=== PATIENT | male | born 1945 | race Caucasian/White ===

== ENCOUNTER 2016-05-11 00:42 | Inpatient (IN) | payer OTHER, MEDICARE ==
[~2016-05-11] VITALS: Ht 172.7 cm; Wt 72.6 kg
[~2016-05-11 00:42] MED LIST: ADVAIR DISKUS 21 DSK INH; ALBUTEROL2.5 MG/3 M INH; ARTHROTEC 75 MG1 TAB PO; ATIVAN 0.5MG T0.5 MG PO; ATIVAN0.5 MG PO; ATORVASTATIN CA10 MG PO; AUGMENTIN 875875 MG PO; AZITHROMYCIN250 MG PO; CYTOTEC200 MC1 PO; DALIRESP500 MC1 PO; DALIRESP500 MCG PO; DICLOFENAC SODI75 M2 PO; GLIPIZIDE5 M2 PO; HYDRODIURIL 112.5 M1 PO; HYDROXYZINE HCL10 M1 PO; HYDROXYZINE HCL50 MG PO; LOPRESSOR 12.12.5 MG PO; MAGNESIUM OXID400 MG PO; METOPROLOL TART25 M1 PO; NOVOLOG100 U/ML SC; PREDNISONE 10MG10 M1 PO; PREDNISONE 20MG20 MG PO; PREDNISONE 5 MG5 MG PO; PREDNISONE10 M2 PO; PREDNISONE10 MG PO; PROAIR HFA8.5 GM INH; PROCHLORPERAZIN10 M1 PO; SERTRALINE HYD100 MG PO; SPIRIVA18 MCG INH; SYMBICORT 16010.2 GM INH; THEOPHYLLINE300 M2 PO; VENLAFAXINE HC150 MG PO; XOPENEX 3 ML3 M1 NEB; XOPENEX HFA45 MCG INH; ZOLOFT 100 MG100 MG PO; [UNRECOGNIZED DRUG - OTHER]
--- NOTE | 2016-05-11 00:57 | NUR ---
PER PT INCREASING SOB OVER LAST FEW DAYS, PER PT HX OF EMPHYSEMA.
--- NOTE | 2016-05-11 01:00 | ED DYSPNEA/ASTHMA COMPLAINT ---
History of Present Illness General Chief Complaint: Dyspnea (COPD, CHF, Other) Stated Complaint: SOB Source: patient, old records, EMS Exam Limitations: no limitations Vital Signs & Intake/Output Vital Signs & Intake/Output Vital Signs Date Time Temp Pulse Resp B/P Pulse O2 O2 Flow FiO2 Ox Delivery Rate 05/11 0306 112 99 05/11 0228 104 24 110/68 99 BIPAP 05/11 0130 115 99 05/11 0104 214/108 05/11 0055 97.8 122 22 96 Nasal 6.0L Cannula Allergies Coded Allergies: NO KNOWN ALLERGIES (11/03/14) Reconcile Medications Albuterol Sulfate (Proair Hfa) 0.09 MG/Actuation ULI 2 PUFF INH Q4-6 COPD ( Reported) Albuterol Sulfate (Proventil) 2.5 MG/3 ML NEB 3 ML INH Q4P PRN SHORTNESS OF BREATH (Reported) Budesonide/Formoterol Fumara (Symbicort 160-4.5 Mcg Inhaler) 160 MCG/4.5 MCG PUF 2 PUF INH BID COPD (Reported) Budesonide/Formoterol Fumarate (Symbicort 160-4.5 Mcg Inhaler) 160 MCG-4.5 MCG/ ACTUATION HFA.AER.AD 2 PUF INH BID BREATHING PROBLEMS (Reported) Diclofenac Sodium 75 MG TABLET.DR 1 TAB PO BID pain (Reported) Glipizide 5 MG TABLET 1 TAB PO AT BEDTIME dm (Reported) Hydrochlorothiazide 12.5 MG CAPSULE 1 CAP PO DAILY HEART HEALTH (Reported) Hydroxyzine HCl 10 MG TABLET 10 MG PO TID anxiety Magnesium Oxide 400 MG TAB 1 TAB PO BID REPLETE ELECTROLYTES TAKE FOR NEXT 4 DAYS THEN STOP Metoprolol Tartrate 25 MG TABLET 0.25 TAB PO BID svt (Reported) Misoprostol (Cytotec) 200 MCG TABLET 1 TAB PO BID stomach (Reported) Prednisone 10 MG TABLET 0 PO SEE ADMIN CRITERIA COPD start from take 5 pill x 1 day take 4 pills x 2 days take 3 pills x 2 days take 2 pills x 2 days take 1 pill x 1 day take half a pill x 1 day then stop Roflumilast (Daliresp) 500 MCG TABLET 500 MCG PO DAILY COPD Theophylline 300 MG T12 0.5 TAB PO DAILY BREATHING (Reported) Tiotropium [place] (Spiriva) 18 MCG CAP.W.DEV 1 CAP INH DAILY BREATHING PROBLEMS (Reported) Venlafaxine HCl (Venlafaxine HCl ER) 150 MG CAP.ER.24H 1 CAP PO DAILY depression (Reported) Triage Note: PER PT INCREASING SOB OVER LAST FEW DAYS, PER PT HX OF EMPHYSEMA. Triage Nurses Notes Reviewed? yes Onset: Just prior to arrival Duration: hour(s):, constant, continues in ED, getting worse Timing: recent history Severity: severe Activities at Onset: none Prior Episodes/Possible Cause: chronic episodes Modifying Factors: Improves With: rest. Worsens With: movement. Associated Symptoms: anxiety, cough, wheezing, weakness HPI: 2 hours prior to admission patient complains of nonproductive cough shortness of breath anxiety. There is no fever chills nausea vomiting diarrhea abdominal pain chest pain headache dysuria rash bleeding. His son reports he has been increasing his oxygen over the last 2 days to 5L. Past History Travel History Traveled to [place] past 21 day No Medical History Any Pertinent Medical History? 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 No Review of Systems Review of Systems Constitutional: Reports: see HPI, weakness. EENTM: Reports: no symptoms. Respiratory: Reports: see HPI, cough, short of breath. Cardiovascular: Reports: no symptoms. GI: Reports: no symptoms. Genitourinary: Reports: no symptoms. Musculoskeletal: Reports: no symptoms. Skin: Reports: no symptoms. Neurological/Psychological: Reports: no symptoms. Hematologic/Endocrine: Reports: no symptoms. Immunologic/Allergic: Reports: no symptoms. All Other Systems: Reviewed and Negative Physical Exam Physical Exam General Appearance: well developed/nourished, alert, awake, anxious, thin Head: atraumatic, normal appearance Eyes: Bilateral: normal appearance, PERRL, EOMI. Ears, Nose, Throat: normal pharynx, normal ENT inspection Neck: normal inspection, supple, full range of motion, no midline tenderness Respiratory: chest non-tender, decreased breath sounds, accessory muscle use, rhonchi, wheezing, respiratory distress Cardiovascular: regular rate/rhythm, normal peripheral pulses, tachycardia, norml femoral pulses equa Peripheral Pulses: 4+ carotid (R), 4+ carotid (L) Gastrointestinal: normal bowel sounds, soft, non-tender, no organomegaly Extremities: normal inspection, normal capillary refill, normal range of motion, no edema Neurologic/Psych: no motor/sensory deficits, awake, alert, oriented x 3, normal mood/affect, zoning engineer II-XII nml as tested Skin: intact, normal color, warm/dry Lymphatic: no anterior cervical manasa Core Measures ACS in differential dx? No Severe Sepsis Present: No Septic Shock Present: No Progress Differential Diagnosis: asthma, bronchitis, CHF, COPD, pneumonia Plan of Care: Orders Procedure Date/time Status Consistent Carbohydrate 3 05/11 B Active ARTERIAL BLOOD GAS (GEN) 05/11 0900 Active CBC WITHOUT DIFFERENTIAL 05/11 0600 Active BASIC ELECTROLYTES PLUS BUN&CR 05/11 0600 Active RAPID VIRAL INFLUENZA A 05/11 0410 Active Pathway - chart 05/11 0406 Active Code Status 05/11 0406 Active Patient Data 05/11 0313 Active OXYGEN SETUP (GEN) 05/11 0211 Active Saline Lock 05/11 0211 Active Admit to inpatient 05/11 0211 Active Vital Signs 05/11 0211 Active Activity/Ambulation 05/11 0211 Active Code Status 05/11 0211 Complete Intake & Output 05/11 0139 Active BIPAP 05/11 0135 Complete BLOOD CULTURE 05/11 0125 Active ARTERIAL BLOOD GAS (GEN) 05/11 0049 Complete BLOOD CULTURE 05/11 0049 Active TROPONIN LEVEL 05/11 0049 Complete MAGNESIUM 05/11 0049 Complete COMPREHENSIVE METABOLIC PANEL 05/11 0049 Complete CBC WITHOUT DIFFERENTIAL 05/11 0049 Complete EKG 05/11 0049 Active TRC EVALUATION (GEN) 05/11 UNK Active PULSE OXIMETRY (GEN) 05/11 UNK Active PEAK FLOW MEASUREMENT (GEN) 05/11 UNK Active OXYGEN SETUP (GEN) 05/11 UNK Active House Staff 05/11 UNK Active VTE Mechanical Prophylaxis 05/11 UNK Active Vital Signs 05/11 UNK Active Intake & Output 05/11 UNK Active FingerStick- Glucose 05/11 UNK Active Current Medications Sig/Renee Start time Last Medication Dose Stop Time Status Admin Azithromycin 250 MG DAILY 05/11 1000 UNVr (Zithromax) Budesonide/ 2 PUF BID 05/11 1000 UNVr Formoterol Fumarate (Symbicort) Hydrochlorothiazide 12.5 MG DAILY 05/11 1000 UNVr (Hydrodiuril) Tiotropium [place] 1 PUF DAILY 05/11 1000 UNVr (Spiriva) Heparin Sodium 5,000 UNIT Q8 05/11 0600 UNVr (Porcine) Methylprednisolone 40 MG Q6 05/11 06 UNVr (Solumedrol) 05/13 2359 Acetaminophen 500 MG Q6P PRN 05/11 041 UNVr (Tylenol) Oxycodone/ 2 TAB Q8P PRN 05/11 0415 UNVr Acetaminophen (Percocet) Ramelteon 8 MG ONCE ONE 05/11 414 UNVr (Rozerem) 05/11 041 Guaifenesin 10 ML Q4P PRN 05/11 0400 UNVr (Robitussin) Laboratory Tests 05/11/16 011: Anion Gap 4 L, Estimated GFR > 60, BUN/Creatinine Ratio 30.0 H, Glucose 120 H , Calcium 9.4, Magnesium 1.7, Total Bilirubin 0.3, AST 34, ALT 42, Alkaline Phosphatase 207 H, Troponin I 0.02, Total Protein 6.5, Albumin 3.9, Globulin 2.6, Albumin/Globulin Ratio 1.5, CBC w Diff NO MAN DIFF REQ, RBC 4.51 L, MCV 89.6, MCH 29.1, RDW 13.6, MPV 9.0, Gran % 57.8, Lymphocytes % 32.2, Monocytes % 7.7, Eosinophils % 1.9, Basophils % 0.4, Absolute Granulocytes 5.2, Absolute Lymphocytes 2.9, Absolute Monocytes 0.7 H, Absolute Eosinophils 0.2, Absolute Basophils 0, PUBS MCHC 32.5 L 05/11/16 0055: pH 7.30 *L, pCO2 60 *H, pO2 162 H, HCO3 29 H, ABG O2 Sat (Measured) 98.0, P-50 (Temp Corrected) Y, Carboxyhemoglobin 0.3 L, O2 Concentration % 10 LPM, Temperature 97.8, O2 Delivery Method A/M, Phlebotomy Draw Site LEFT RADIAL Microbiology 05/11 409 NASOPHARYN: Influenza Virus A & B Rapid Smear - ORD 05/11 126 BLOOD: Blood Culture - RECD 05/11 116 BLOOD: Blood Culture - RECD Diagnostic Imaging: Viewed by Me: Radiology Read. Discussed w/RAD: Radiology Read. CXR Impression: no acute abnormality Initial ED EKG: normal axis, normal intervals, normal p-waves, normal QRS complex, normal sinus rhythm, nonspecific ST T wave chg Prior EKG: unchanged Rhythm Strip: sinus tachycardia Departure Departure Disposition: STILL A PATIENT Condition: Stable Clinical Impression Primary Impression: COPD with exacerbation Secondary Impressions: Acute respiratory acidosis Referrals: SPENCER ZHOU,EMANUEL Menezes (PCP/Family) Departure Forms: Customer Survey General Discharge Information Admission Note Spoke With: SHAHBAZ MERCEDES MD Documentation of Exam: Documentation of any treatments & extenuating circumstances including Concerns Regarding Discharge (functional status, medication knowledge or non-compliance, living conditions, etc.) that warrant an admission rather than observation: Pulmonary evaluation IV steroids serial beta agonist nebs supplemental oxygen physical therapy medication adjustment continuing care discharge planning Critical Care Note Critical Care Note Critical Care Time: 30-74 min (40) Comments: BiPAP effective in decreasing work of breathing
--- NOTE | 2016-05-11 01:04 | NUR ---
PT ALERT SITTING STRAIGHT UP IN BED PT REPORTS FEELING TOOO HOT REMOVED SHIRT, REFUSING ROGE, REQUESTS FAN LABORED BREATHING AT REST, SCATTERED RHONCHI NOTED AND DIMINSHED BS BILAT BASES.
--- NOTE | 2016-05-11 01:21 | NUR ---
LABS AND 1SET OF BLOOD CULTURES DRAWN SST LAV AVILES PINK BLUE
--- NOTE | 2016-05-11 01:28 | NUR ---
RESP AT BEDSIDE PLACING PT ON BIPAP
--- NOTE | 2016-05-11 01:29 | RADIOLOGY REPORT ---
EXAMINATION: XR PORTABLE CHEST CLINICAL INFORMATION: History of COPD. Shortness of breath. Question pneumonia. COMPARISON: Chest radiograph 11/10/2015. TECHNIQUE: Portable AP view of the chest was obtained. FINDINGS: There is bilateral lung hyperexpansion with flattening of the diaphragmatic contours. Lungs are well-expanded. There is central hilar vascular engorgement. No focal consolidative disease or effusion. No pneumothorax. The cardiac silhouette and upper mediastinal contours are normal. No acute osseous finding. Chronic changes of an anterior cervical discectomy and fusion within the lower cervical spine is noted. IMPRESSION: Findings consistent with chronic obstructive pulmonary disease. No overt consolidative disease or effusion.
--- NOTE | 2016-05-11 01:29 | NUR ---
PT VERY ANXIOUS. OK WITH DR WATSON TO GIVE 0.5 MG ATIVAN.
[2016-05-11 01:32] LABS: ABSOLUTE BASOPHIL COUNT 0 /CUMM (0.0-0.2); ABSOLUTE EOSINOPHIL COUNT 0.2 /CUMM (0.0-0.7); ABSOLUTE GRANULOCYTE CT 5.2 /CUMM (1.4-6.5); ABSOLUTE LYMPH COUNT 2.9 /CUMM (1.2-3.4); ABSOLUTE MONOCYTE COUNT 0.7 /CUMM (0.10-0.60); BASOPHIL % 0.4 % (0.0-2.0); EOSINOPHIL % 1.9 % (0-5); GRANULOCYTE % 57.8 % (42.2-75.2); HEMATOCRIT 40.4 % (42-52); MEAN CORPUSCULAR HGB 29.1 PG (27.0-31.0); MEAN CORPUSCULAR HGB CONC 32.5 G/DL (33.0-37.0); MEAN CORPUSCULAR VOLUME 89.6 FL (80.0-94.0); PLATELET COUNT 198 /CUMM (130-400); RBC DISTRIBUTION WIDTH 13.6 % (11.5-14.5); RED BLOOD CELL CT 4.51 /CUMM (4.70-6.10); WHITE BLOOD CELL COUNT 8.9 /CUMM (4.8-10.8)
--- NOTE | 2016-05-11 02:28 | NUR ---
LESS ANXIOUS AFTER ATIVAN, STABLE
--- NOTE | 2016-05-11 02:51 | NUR ---
PT MUCH LESS ANXIOUS BUT IS REQUESTING A SLEEPING PILL. AND WHEN PT WAS TOLD PER MD HE SHOULD NOT HAVE A SLEEPING PILL AT THIS TIME PT BECAME ANXIOUS INSTANTLY.
--- NOTE | 2016-05-11 02:59 | NUR ---
PT REQUESTING TO BE TAKEN OFF BIPAP, OK PER DR WATSON. PT PLACED ON BASELINE NC 4L/MIN. O2 SAT 98-99%
[2016-05-11] MEDS ORDERED: SYMBICORT 16010.2 GM INH (03:13)
[2016-05-11] MEDS ORDERED: HYDROCHLOROTH12.5 M3 PO (03:13)
--- NOTE | 2016-05-11 03:30 | History & Physical ---
TICO ZHOU,[facility] – [place] 05/11/16 0329: General Information and HPI MD Statement: I have seen and personally examined EMRE CORREA SR and documented this H&P. The patient is a 71 year old M who presented with a patient stated chief complaint of shortness of breath. Source of Information: patient, old records Exam Limitations: no limitations History of Present Illness: Mr. 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 Patient denies increased cough or sputum production or changes in sputum color. He denies sick contacts, fever, chills or URI symptoms. He tried nebulizers at home with no significant relief. Per patient's son, he has been requiring increased oxygen at home for the past two days leading up to current presentation, but patient denies it. He follows with clinic mgr Dr. Kunz in [place] but has not been compliant with visits. Of note he has not been taking the roflumilast as his insurance does not cover the medication. Allergies/Medications Allergies: Coded Allergies: NO KNOWN ALLERGIES (11/03/14) Past History Travel History Traveled to [place] past 21 day No Medical History Neurological: NONE EENT: wears glasses Cardiovascular: hypertension, hyperlipidemia, sinus tachycardia Respiratory: asthma, COPD (end-stage) Gastrointestinal: NONE Hepatic: NONE Renal: NONE Musculoskeletal: NONE Psychiatric: depression, panic attacks Endocrine: diabetes Blood Disorders: NONE Cancer(s): NONE FURNITURE REMOVALIST'S ASSISTANT/Reproductive: NONE History of MRSA: No History of VRE: No History of CDIFF: No Surgical History Surgical History: anterior cervical discectomy Past Family/Social History Family History Relations & Conditions if any MOTHER Lung disease BROTHER FH: stroke Psychosocial History Where do you live? Home Who Do You Live With? self (son lives upstairs ) Services at Home: Oxygen Primary Language: Greenlandic Smoking Status: Former Smoker (90 Pack-Yrs, Quit 15 Yrs Ago) ETOH Use: denies use Illicit Drug Use: denies illicit drug use Functional Ability ADLs Independent: dressing, eating, toileting, bathing. Ambulation: cane IADLs Independent: finances, telephone, medication admin. Needs Assist: shopping, housework, food prep, transportation. Employment History Employment Retired Review of Systems Review of Systems Constitutional: Denies: chills, fever. EENTM: Reports: no symptoms. Cardiovascular: Denies: chest pain. Respiratory: Reports: cough, short of breath, sputum production. GI: Denies: abdominal pain. Genitourinary: Reports: no symptoms. Musculoskeletal: Reports: no symptoms. Skin: Reports: no symptoms. Neurological/Psychological: Reports: no symptoms. Hematologic/Endocrine: Reports: no symptoms. Immunologic/Allergic: Reports: no symptoms. All Other Systems: Reviewed and Negative Exam & Diagnostic Data Last 24 Hrs of Vital Signs/I&O Vital Signs Date Time Temp Pulse Resp B/P Pulse O2 O2 Flow FiO2 Ox Delivery Rate 05/11 0529 98 Nasal 4.0L Cannula 05/11 0515 98.3 100 20 118/60 98 Nasal 4.0L Cannula 05/11 0507 98 Nasal 4.0L Cannula 05/11 0412 96.9 98 18 102/60 98 Nasal 4.0L Cannula 05/11 0306 112 99 05/11 0228 104 24 110/68 99 BIPAP 05/11 0130 115 99 05/11 0104 214/108 05/11 0055 97.8 122 22 96 Nasal 6.0L Cannula Intake & Output 05/11 0800 05/11 0000 05/10 1600 Intake Total Output Total 100 Balance -100 Output, Urine 100 Patient 72.575 kg Weight Physical Exam General Appearance Alert, Oriented X3, No Acute Distress Skin No Rashes HEENT Atraumatic, Mucous Membr. moist/pink Neck Supple Cardiovascular Regular Rate, Normal S1, Normal S2 Lungs Diminished Breath Sounds, Mild Respiratory Distress with Accessory Muscle Use Abdomen Soft, No Tenderness, Positive Bowel Sounds Neurological No Focal Deficits Noted Extremities No Clubbing, No Cyanosis, No Edema Last 24 Hrs of Labs/Joel: Laboratory Tests 05/11/16 0117: Anion Gap 4 L, Estimated GFR > 60, BUN/Creatinine Ratio 30.0 H, Glucose 120 H , Calcium 9.4, Magnesium 1.7, Total Bilirubin 0.3, AST 34, ALT 42, Alkaline Phosphatase 207 H, Troponin I 0.02, Total Protein 6.5, Albumin 3.9, Globulin 2.6, Albumin/Globulin Ratio 1.5, CBC w Diff NO MAN DIFF REQ, RBC 4.51 L, MCV 89.6, MCH 29.1, RDW 13.6, MPV 9.0, Gran % 57.8, Lymphocytes % 32.2, Monocytes % 7.7, Eosinophils % 1.9, Basophils % 0.4, Absolute Granulocytes 5.2, Absolute Lymphocytes 2.9, Absolute Monocytes 0.7 H, Absolute Eosinophils 0.2, Absolute Basophils 0, PUBS MCHC 32.5 L 05/11/16 0055: pH 7.30 *L, pCO2 60 *H, pO2 162 H, HCO3 29 H, ABG O2 Sat (Measured) 98.0, P-50 (Temp Corrected) Y, Carboxyhemoglobin 0.3 L, O2 Concentration % 10 LPM, Temperature 97.8, O2 Delivery Method A/M, Phlebotomy Draw Site LEFT RADIAL Diagnostic Data EKG Results Sinus tachycardia HR 114 Multiple premature atrial complexes QTc 452 CXR Results Findings consistent with chronic obstructive pulmonary disease. No overt consolidative disease or effusion. 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 #COPD exacerbation: Symptoms improved significantly with BiPAP. Currently patient is back at baseline oxygen requirement of 4 L, improved from 6 L on initial presentation. Exam remarkable for markedly diminished breath sounds and accessory muscle use. ABG 7.30/60/120/29. CXR with no evidence of pneumonia. S/p 125 mg IV Solumedrol in the ED. * Continue Solumedrol IV 40 mg Q8H. * Consult clinic mgr Dr. Hernandez in the AM who patient has seen previously as inpatient. * TRC/nebs. * Continue home inhalers Symbicort 2 puffs BID and Spiriva 1 puff BID. * Patient is unsure if he is taking theophylline. Confirm medications and resume if he is taking the medication. * Start Mucinex 600 mg PO BID. * Start azithromycin 250 mg PO daily. * Repeat ABG only if patient deteriorates or develops altered mental status. * Provide supplemental oxygen as tolerated to keep SpO2 > 92%. * Confirm home medications in the AM and resume. #T2DM: Patient is no longer taking glipizide. * Accu-checks and medium dose sliding scale Novolog TIDAC. #HTN: Patient confirms taking HCTZ but it is unclear if he is still taking metoprolol. * Continue HCTZ 12.5 mg PO daily. * Resume metoprolol after confirming medications if patient is still on medication. Diet: Consistent Carbohydrate 3 DVT PPx: Lovenox and ALPs CODE: FULL As Ranked By This Provider Problem List: 1. COPD exacerbation 2. Acute respiratory failure with hypercapnia 3. T2DM (type 2 diabetes mellitus) 4. Hypertension 5. Sinus tachycardia Core Measures/Miscellaneous Acute Coronary Syndrome ACS Diagnosis: No Cerebrovascular Accident CVA/TIA Diagnosis: No Congestive Heart Failure CHF Diagnosis: No Venous Thromboembolism VTE Risk Factors: Age > 40, CHF or Resp failure [facility] prophylaxis d/t: No contraindications No VTE Pharm Prophylaxis d/t: No contraindications VTE Diagnosis: No VTE Type: NONE VTE Confirmed by (Test): NONE Severe Sepsis Severe Sepsis Present: No Septic Shock Septic Shock Present: No Miscellaneous Documentation Attending Case Discussed With: CAREY ZHOU,JARAD Prabhakar Primary Care Physician: EMANUEL KUNZ MD, I. Patient sees these Specialists Community Service Director Emanuel Kunz MD Level of Patient Care: Telemetry DARENJENELLEJennifer 05/11/16 0603: General Information and HPI Allergies/Medications Home Med list Albuterol Sulfate (Proair Hfa) 0.09 MG/Actuation ULI 2 PUFF INH Q4-6 COPD ( Reported) Albuterol Sulfate (Proventil) 2.5 MG/3 ML NEB 3 ML INH Q4P PRN SHORTNESS OF BREATH (Reported) Budesonide/Formoterol Fumara (Symbicort 160-4.5 Mcg Inhaler) 160 MCG/4.5 MCG PUF 2 PUF INH BID COPD (Reported) Budesonide/Formoterol Fumarate (Symbicort 160-4.5 Mcg Inhaler) 160 MCG-4.5 MCG/ ACTUATION HFA.AER.AD 2 PUF INH BID BREATHING PROBLEMS (Reported) Diclofenac Sodium 75 MG TABLET.DR 1 TAB PO BID pain (Reported) Glipizide 5 MG TABLET 1 TAB PO AT BEDTIME dm (Reported) Hydrochlorothiazide 12.5 MG CAPSULE 1 CAP PO DAILY HEART HEALTH (Reported) Hydroxyzine HCl 10 MG TABLET 10 MG PO TID anxiety Magnesium Oxide 400 MG TAB 1 TAB PO BID REPLETE ELECTROLYTES TAKE FOR NEXT 4 DAYS THEN STOP Metoprolol Tartrate 25 MG TABLET 0.25 TAB PO BID svt (Reported) Misoprostol (Cytotec) 200 MCG TABLET 1 TAB PO BID stomach (Reported) Theophylline 300 MG T12 0.5 TAB PO DAILY BREATHING (Reported) Tiotropium [place] (Spiriva) 18 MCG CAP.W.DEV 1 CAP INH DAILY BREATHING PROBLEMS (Reported) Venlafaxine HCl (Venlafaxine HCl ER) 150 MG CAP.ER.24H 1 CAP PO DAILY depression (Reported) Attending MD Review Statement Attending Statement Attending MD Statement: examined this patient, discuss w/resident/PA/PUBLIC SPEAKING TEACHER, agreed w/resident/PA/PUBLIC SPEAKING TEACHER, discussed with family, reviewed EMR data (avail), reviewed images, amended to note Attending Assessment/Plan: CC: Acute worsening of shortness of breath PMH: COPD on 4 L NC, HTN, HLD, DM, lung nodule Patient came to ER with acute worsening of shortness of breath started a few hours before arrival. Patient tried his home albuterol without improvement. According to his son patient was using increased oxygen at home since last 2 days but patient denies it. Patient also denies increased cough, sputum production, fever, chills, chest pain, abdominal pain or any other symptoms. Vitals: Afebrile, pulse 122 , tachypneic at 24, blood pressure 2014/108, requiring 6 L to saturate at 94% later on started on BiPAP., Patient was on BiPAP for 2-3 hours in ER after which his vitals improved. On exam: A O 3, cooperative, respiratory distress, accessory muscles in use, neck supple, no JVD , no lymphadenopathy, mucosa moist, no focal neurological deficit, no dependent edema, no obvious skin rashes or inflammation CVS: S1-S2, RRR. RS: Markedly decreased breath sounds. Bilaterally. Abdomen: Soft, NT, ND, bowel sounds present. Peripheral pulses perfusion normal. Labs: CVC, BMP, LFT unremarkable, alkaline phosphatase 207, troponin 0.02. AB.30/60/162/29 on 10 L. CXR: No obvious pneumonia A and P #1 acute on chronic respiratory failure with hypercapnia: Secondary to COPD exacerbation, patient improved markedly with BiPAP support, now requiring 4 L nasal cannula which is at baseline, still accessory muscles in use, diminished air entry bilaterally. Continue IV methylprednisolone 40 mg every 8 hours, scheduled and when necessary albuterol and ipratropium inhalation, Mucinex 600 mg by mouth twice a day, pulmonary consult in a.m., name not to repeat ABG unless patient is worsened or altered mental status. He is compliant with Symbicort, Spiriva at home but not sure if he is taking theophylline. Insurance does not cover for Roflumilast. Patient is not very compliant with his doctor's visits, as he cannot go to [place] every time. Patient request to see Dr. Hernandez as he has seen him in the past visit, and wants to follow up with him outpatient as well. #2 past history of diabetes: Patient states that he stopped taking glipizide #3 hypertension: Patient confirms taking HCTZ, but unsure if he is taking metoprolol or not. #4 patient's ex helps him in medications, need to reconfirm his medications either from [facility] pharmacy or from his ex-, resume medications accordingly in a.m. #5 DVT prophylaxis with Lovenox, adequate pain control. #6 we had some discussion about CODE STATUS, patient is full code. I explained him that it will be difficult for weaning off ventilator with severe COPD, he is thinking to make living will. Son is healthcare proxy. BRANDYN CLEMENT 05/11/16 0620: Resident Review Statement Resident Statement: examined this patient, discussed with director internal control, agreed with director internal control, reviewed EMR data (avail), reviewed images, amended to note Other Findings: This is 69-year-old gentleman with past medical history of severe COPD on 4-6 L oxygen nasal cannula, hypertension, hyperlipidemia, diabetes mellitus previous lung nodule seen in the CAT scan, followed regularly by his clinic mgr Dr. kunz in [place]. Patient presented to the emergency department she complain off difficulty breathing that is associated with nonproductive cough and anxiety , cognitive the patient started 2 hour prior to presentation. Patient denies any fever, chills, chest pain, nausea, vomiting, diarrhea, abdominal pain, headache, sick contact. Physical examination, imaging and lab as above. Assessment: -Acute on chronic hypercarbic respiratory failure: Most likely due to underlying COPD exacerbation, patient will need IV steroids, nebulizing treatment and nocturnal BiPAP. Patient also need to cover with a Z-Jeremías, despite that AER NO obvious upper or lower respiratory tract. Infection influenza need to be ruled out. Plan: -Admit patient to telemetry floor -Vitals every shift, continuous pulse oximetry -Start the patient on IV Solu-Medrol 40 mg every 8 -Azithromycin by mouth 250 mg daily -Nocturnal BiPAP, repeat ABG -Obtain rapid influenza virus -Continue patient home medication of Spiriva, Symbicort -Pulmonary consultation in a.m. -Continue Patient home medication of hydrochlorothiazide -confirm the p.t Home medication list. -Carbohydrate consistent diet, insulin sliding scale, Accu-Chek -Pain pathway -DVT prophylaxis: Subcutaneous Lovenox -Full code
--- NOTE | 2016-05-11 03:36 | NUR ---
HOUSE STAFF IN TO EVAL PT
--- NOTE | 2016-05-11 04:29 | NUR ---
PT MEDICATED WITH 8 MG ROZEREM PO ORDERED. PT CONTINUES TO REFUSE TO WEAR A OSPITAL GOWN REPORT GIVEN TO SERENA MONTIEL.
--- NOTE | 2016-05-11 04:33 | NUR ---
PT BED ASSIGNMENT 182-1
[2016-05-11 05:15] VITALS: BP 118/60
--- NOTE | 2016-05-11 06:06 | Admission Certification ---
Admission Certification Certification Statement - As attending physician, I certify that at the time of - admission, based on clinical presentation, severity of - symptoms, need for further diagnostic testing and - therapeutic interventions, and risk of adverse outcomes - without in-hospital treatment, in my clinical assessment, - this patient requires an acute hospital stay for a minimum - of two nights or longer. I have also considered psychsocial - factors such as support system, advanced age, financial - issues, cognitive issues, and failed out-patient treatments, - past re-admission history, safety of patient, and lack of - compliance as applicable. Specific rationale supporting this admission is: Acute on chronic respiratory failure with hypercapnia, COPD exacerbation.
[2016-05-11 08:46] VITALS: BP 140/80
[2016-05-11 08:47] LABS: ABSOLUTE BASOPHIL COUNT 0 /CUMM (0.0-0.2); ABSOLUTE EOSINOPHIL COUNT 0 /CUMM (0.0-0.7); ABSOLUTE GRANULOCYTE CT 8.8 /CUMM (1.4-6.5); ABSOLUTE LYMPH COUNT 0.3 /CUMM (1.2-3.4); ABSOLUTE MONOCYTE COUNT 0.1 /CUMM (0.10-0.60); BASOPHIL % 0 % (0.0-2.0); EOSINOPHIL % 0.1 % (0-5); MEAN CORPUSCULAR HGB 29.4 PG (27.0-31.0); MEAN CORPUSCULAR HGB CONC 32.5 G/DL (33.0-37.0); MEAN CORPUSCULAR VOLUME 90.4 FL (80.0-94.0); MEAN PLATELET VOLUME 9.8 FL (7.4-10.4); RBC DISTRIBUTION WIDTH 13.6 % (11.5-14.5); WHITE BLOOD CELL COUNT 9.2 /CUMM (4.8-10.8)
[2016-05-11 09:21] LABS: PLATELET COUNT 191 /CUMM (130-400)
[2016-05-11 09:22] LABS: GRANULOCYTE % 95.8 % (42.2-75.2)
--- NOTE | 2016-05-11 10:04 | Acceptance Note - Resident/Int ---
DELL ZHOU,SANTIAGO 05/11/16 0943: Subjective Background: Patient was seen and examind at bedside. 71 yo male with pmh of 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 He used bipap then oxygen requireemnt was decreased from 6L to 4L. He still has discomfort and shortness of breath while on 4L. Review of Systems Constitutional: Denies: fever, weakness. EENTM: Reports: no symptoms. Cardiovascular: Denies: chest pain, palpitations, peripheral edema. Respiratory: Reports: short of breath, wheezing. Denies: cough, sputum production. Gastrointestinal: Denies: abdominal pain, nausea, vomiting. Genitourinary: Reports: no symptoms. Musculoskeletal: Reports: no symptoms. Skin: Reports: no symptoms. Neurological/Psychological: Reports: no symptoms. Hematologic/Endocrine: Reports: no symptoms. Immunologic/Allergic: Reports: no symptoms. Objective Last 24 Hrs of Vital Signs/I&O Vital Signs Date Time Temp Pulse Resp B/P Pulse O2 O2 Flow FiO2 Ox Delivery Rate 05/11 0846 97.5 94 22 140/80 99 Nasal 4.0L Cannula 05/11 0529 98 Nasal 4.0L Cannula 05/11 0515 98.3 100 20 118/60 98 Nasal 4.0L Cannula 05/11 0507 98 Nasal 4.0L Cannula 05/11 0412 96.9 98 18 102/60 98 Nasal 4.0L Cannula 05/11 0306 112 99 05/11 0228 104 24 110/68 99 BIPAP 05/11 0130 115 99 05/11 0104 214/108 05/11 0055 97.8 122 22 96 Nasal 6.0L Cannula Intake & Output 05/11 1600 05/11 0800 05/11 0000 Intake Total Output Total 100 Balance -100 Output, Urine 100 Patient 160 lb Weight Physical Exam General Appearance: Alert, Oriented X3, Cooperative, Mild Distress Skin: No Rashes, No Significant Lesion HEENT: Atraumatic, EOMI, Mucous Membr. moist/pink, pursed lip breathing Neck: Supple, No JVD, No LAD Lymphatic: Cervical nl Cardiovascular: Regular Rate, Normal S1, Normal S2, No Murmurs Lungs: No wheezing after breathing treatment, decreased lung sounds Abdomen: Normal Bowel Sounds, Soft, No Tenderness Neurological: Normal Speech, Strength at 5/5 X4 Ext, Normal Tone, Sensation Intact Extremities: No Edema, Normal Pulses Vascular: Normal Pulses, Pulses Symmetrical Current Medications: Current Medications Sig/Renee Start time Last Medication Dose Route Stop Time Status Admin Acetaminophen 500 MG Q6P PRN 05/11 0415 AC PO Azithromycin 250 MG DAILY 05/11 1000 AC PO Budesonide/ 2 PUF BID 05/11 1000 AC Formoterol Fumarate INH Enoxaparin Sodium 40 MG DAILY 05/11 1000 AC SC Guaifenesin 600 MG Q12 05/11 1000 AC PO Guaifenesin 10 ML Q4P PRN 05/11 0400 DC PO Heparin Sodium 5,000 UNIT Q8 05/11 0600 DC (Porcine) SC Hydrochlorothiazide 12.5 MG DAILY 05/11 1000 AC PO Insulin Aspart 0 TIDAC 05/11 0800 AC 05/11 SC 0930 Lorazepam 0.5 MG ONCE ONE 05/11 0215 DC 05/11 IV 05/11 0216 0155 Lorazepam 0 .STK-MED ONE 05/11 0135 DC .ROUTE Methylprednisolone 40 MG Q8 05/11 1400 AC IV Methylprednisolone 40 MG Q6 05/11 0600 DC IV 05/13 2359 Methylprednisolone 125 MG ONCE ONE 05/11 0100 DC 05/11 IV 05/11 0101 0040 Methylprednisolone 0 .STK-MED ONE 05/11 0048 DC .ROUTE Oxycodone/ 2 TAB Q8P PRN 05/11 0415 AC Acetaminophen PO Ramelteon 8 MG ONCE ONE 05/11 0415 DC 05/11 PO 05/11 041 0429 Tiotropium [place] 1 PUF DAILY 05/11 1000 AC INH Last 24 Hrs of Lab/Joel Results Last 24 Hrs of Labs/Mics: Laboratory Tests 05/11/16 0610: Anion Gap 6, Estimated GFR > 60, BUN/Creatinine Ratio 33.8 H, Phosphorus 2.5, CBC w Diff NO MAN DIFF REQ, RBC 4.20 L, MCV 90.4, MCH 29.4, RDW 13.6, MPV 9.8, Gran % 95.8 H, Lymphocytes % 3.4 L, Monocytes % 0.7 L, Eosinophils % 0.1, Basophils % 0 L, Absolute Granulocytes 8.8 H, Absolute Lymphocytes 0.3 L, Absolute Monocytes 0.1 L, Absolute Eosinophils 0, Absolute Basophils 0, PUBS MCHC 32.5 L 05/11/16 0117: Anion Gap 4 L, Estimated GFR > 60, BUN/Creatinine Ratio 30.0 H, Glucose 120 H , Calcium 9.4, Magnesium 1.7, Total Bilirubin 0.3, AST 34, ALT 42, Alkaline Phosphatase 207 H, Troponin I 0.02, Total Protein 6.5, Albumin 3.9, Globulin 2.6, Albumin/Globulin Ratio 1.5, CBC w Diff NO MAN DIFF REQ, RBC 4.51 L, MCV 89.6, MCH 29.1, RDW 13.6, MPV 9.0, Gran % 57.8, Lymphocytes % 32.2, Monocytes % 7.7, Eosinophils % 1.9, Basophils % 0.4, Absolute Granulocytes 5.2, Absolute Lymphocytes 2.9, Absolute Monocytes 0.7 H, Absolute Eosinophils 0.2, Absolute Basophils 0, PUBS MCHC 32.5 L 05/11/16 0055: pH 7.30 *L, pCO2 60 *H, pO2 162 H, HCO3 29 H, ABG O2 Sat (Measured) 98.0, P-50 (Temp Corrected) Y, Carboxyhemoglobin 0.3 L, O2 Concentration % 10 LPM, Temperature 97.8, O2 Delivery Method A/M, Phlebotomy Draw Site LEFT RADIAL Microbiology 05/11 07 NASOPHARYN: Influenza Virus A & B Rapid Smear - COMP 05/11 126 BLOOD: Blood Culture - RECD 05/11 116 BLOOD: Blood Culture - RECD Lines/Diet/Fluids Lines: peripheral lines Assessment/Plan Assessment: 71 yo male with pmh of 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 1. Acute on chronic hypercarbic respiratory failure: Secondary to acute COPD exacerbation without known exacerbating factor. ABG showed pH 7.30, pCO2 60, O2 162, bicarb 29. He improved markedly with BiPAP, oxygen requirement was decreased from 6L to 4 L nasal cannula. Continue IV methylprednisolone 40 mg every 8 hours, po azithromycin, albuterol q4 around the clock, spiriva, symbicort. Pulmonary consult was requested, and patient wants to follow Dr. Hernandez as outpatient as well. 2. history of diabetes: He stopped taking glipizide, will do Accuchecks and give novololg s/s during admission. 3. hypertension: Patient confirms taking HCTZ, but unsure if he is taking metoprolol or not. Will confirm med lists DVT prophylaxis with Lovenox pain pathway Full code, Son is healthcare proxy. Problem List: 1. Acute respiratory failure with hypercapnia 2. COPD EXACERBATION 3. Hypertension 4. Diabetes Pain Ratin Pain Location: NA Pain Goal: Pain 4 or less Pain Plan: tyrenol percocet Tomorrow's Labs & Rationales: No labs DVT/Prophylaxis: pharmacological Discharge Plan Stable for Discharge? No TAMMIE HANCOCK 05/11/16 1341: Attending MD Review Statement Attending Statement Attending MD Statement: examined this patient, discuss w/resident/PA/DOOR TO DOOR SELLING AGENT, agreed w/resident/PA/DOOR TO DOOR SELLING AGENT, discussed with family, reviewed EMR data (avail), discussed with nursing, discussed with case mgmt, reviewed images
--- NOTE | 2016-05-11 13:56 | Cons- Pulmonary ---
General Information and HPI Consulting Request Date of Consult: 05/11/16 Requested By: med team History of Present Illness: Mr. 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 Patient denies increased cough or sputum production or changes in sputum color. He denies sick contacts, fever, chills or URI symptoms. He tried nebulizers with no significant relief. Per patient's son, he has been requiring ncreased oxygen at home for the past two days leading up to current presentation, but patient denies it. He follows with bonderizer operator Dr. Booth in [place] but has not been compliant with visits. Of note he has not been taking the roflumilast as his insurance does not cover the medication. Pt initially was being evaluated for lung transplant now has not followed up with [facility] Review of Systems Constitutional: Denies: chills, fever. EENTM: Reports: no symptoms. Cardiovascular: Denies: chest pain. Respiratory: Reports: cough, short of breath, sputum production. GI: Denies: abdominal pain. Genitourinary: Reports: no symptoms. Musculoskeletal: Reports: no symptoms. Skin: Reports: no symptoms. Neurological/Psychological: Reports: no symptoms. Hematologic/Endocrine: Reports: no symptoms. Immunologic/Allergic: Reports: no symptoms. All Other Systems: Reviewed and Negative Allergies/Medications Allergies: Coded Allergies: NO KNOWN ALLERGIES (11/03/14) Home Med List: Albuterol Sulfate (Proair Hfa) 0.09 MG/Actuation ULI 2 PUFF INH Q4-6 COPD ( Reported) Albuterol Sulfate (Proventil) 2.5 MG/3 ML NEB 3 ML INH Q4P PRN SHORTNESS OF BREATH (Reported) Budesonide/Formoterol Fumara (Symbicort 160-4.5 Mcg Inhaler) 160 MCG/4.5 MCG PUF 2 PUF INH BID COPD (Reported) Budesonide/Formoterol Fumarate (Symbicort 160-4.5 Mcg Inhaler) 160 MCG-4.5 MCG/ ACTUATION HFA.AER.AD 2 PUF INH BID BREATHING PROBLEMS (Reported) Diclofenac Sodium 75 MG TABLET.DR 1 TAB PO BID pain (Reported) Glipizide 5 MG TABLET 1 TAB PO AT BEDTIME dm (Reported) Hydrochlorothiazide 12.5 MG CAPSULE 1 CAP PO DAILY HEART HEALTH (Reported) Hydroxyzine HCl 10 MG TABLET 10 MG PO TID anxiety Magnesium Oxide 400 MG TAB 1 TAB PO BID REPLETE ELECTROLYTES TAKE FOR NEXT 4 DAYS THEN STOP Metoprolol Tartrate 25 MG TABLET 0.25 TAB PO BID svt (Reported) Misoprostol (Cytotec) 200 MCG TABLET 1 TAB PO BID stomach (Reported) Prednisone 10 MG TABLET 0 PO SEE ADMIN CRITERIA COPD start from take 5 pill x 1 day take 4 pills x 2 days take 3 pills x 2 days take 2 pills x 2 days take 1 pill x 1 day take half a pill x 1 day then stop Roflumilast (Daliresp) 500 MCG TABLET 500 MCG PO DAILY COPD Theophylline 300 MG T12 0.5 TAB PO DAILY BREATHING (Reported) Tiotropium [place] (Spiriva) 18 MCG CAP.W.DEV 1 CAP INH DAILY BREATHING PROBLEMS (Reported) Venlafaxine HCl (Venlafaxine HCl ER) 150 MG CAP.ER.24H 1 CAP PO DAILY depression (Reported) Review of Systems Review of Systems Constitutional: Reports: see HPI. Past History Travel History Traveled to [place] past 21 day No Medical History Neurological: NONE EENT: NONE, wears glasses Cardiovascular: hypertension, hyperlipidemia Respiratory: emphysema, end-stage COPD 4LNC DEPENDENT Gastrointestinal: NONE Hepatic: NONE Renal: NONE Musculoskeletal: NONE Psychiatric: see below Endocrine: diabetes, deranged blood sugar Blood Disorders: NONE Cancer(s): NONE ACCOUNT PLANNER/Reproductive: NONE Surgical History Surgical History: none Family History Relations & Conditions If Any: MOTHER Lung disease Psychosocial History Where Do You Live? Home Who Do You Live With? self Services at Home: Oxygen Smoking Status: Former Smoker ETOH Use: denies use Illicit Drug Use: denies illicit drug use Functional Ability ADLs Independent: dressing, eating, toileting, bathing. Ambulation: cane IADLs Independent: finances, telephone, medication admin. Needs Assist: shopping, housework, food prep, transportation. Exam & Diagnostic Data Last 24 Hrs of Vital Signs/I&O Vital Signs Date Time Temp Pulse Resp B/P Pulse O2 O2 Flow FiO2 Ox Delivery Rate 05/11 1150 Nasal 4.0L Cannula 05/11 1149 95 Nasal 4.0L Cannula 05/11 0846 97.5 94 22 140/80 99 Nasal 4.0L Cannula 05/11 0529 98 Nasal 4.0L Cannula 05/11 0515 98.3 100 20 118/60 98 Nasal 4.0L Cannula 05/11 0507 98 Nasal 4.0L Cannula 05/11 0412 96.9 98 18 102/60 98 Nasal 4.0L Cannula 05/11 0306 112 99 05/11 0228 104 24 110/68 99 BIPAP 05/11 0130 115 99 05/11 0104 214/108 05/11 0055 97.8 122 22 96 Nasal 6.0L Cannula Intake & Output 05/11 1600 05/11 0800 05/11 0000 Intake Total Output Total 100 Balance -100 Output, Urine 100 Patient 160 lb Weight Laboratory Tests 05/11 05/11 0610 0117 Chemistry Sodium (137 - 145 mmol/L) 138 139 Potassium (3.5 - 5.1 mmol/L) 4.6 4.2 Chloride (98 - 107 mmol/L) 101 102 Carbon Dioxide (22 - 30 mmol/L) 31 H 34 H Anion Gap (5 - 16) 6 4 L BUN (9 - 20 mg/dL) 27 H 27 H Creatinine (0.7 - 1.2 mg/dL) 0.8 0.9 Estimated GFR (>60 ml/min) > 60 > 60 BUN/Creatinine Ratio (7 - 25 %) 33.8 H 30.0 H Glucose (65 - 99 mg/dL) 120 H Calcium (8.4 - 10.2 mg/dL) 9.4 Phosphorus (2.5 - 4.5 mg/dL) 2.5 Magnesium (1.6 - 2.3 mg/dL) 1.7 Total Bilirubin (0.2 - 1.3 mg/dL) 0.3 AST (17 - 59 U/L) 34 ALT (21 - 72 U/L) 42 Alkaline Phosphatase (< 127 U/L) 207 H Troponin I (<0.11 ng/ml) 0.02 Total Protein (6.3 - 8.2 g/dL) 6.5 Albumin (3.5 - 5.0 g/dL) 3.9 Globulin (1.9 - 4.2 gm/dL) 2.6 Albumin/Globulin Ratio (1.1 - 2.2 %) 1.5 Hematology CBC w Diff NO MAN DIFF REQ NO MAN DIFF REQ WBC (4.8 - 10.8 /CUMM) 9.2 8.9 RBC (4.70 - 6.10 /CUMM) 4.20 L 4.51 L Hgb (14.0 - 18.0 G/DL) 12.4 L 13.1 L Hct (42 - 52 %) 38.0 L 40.4 L MCV (80.0 - 94.0 FL) 90.4 89.6 MCH (27.0 - 31.0 PG) 29.4 29.1 RDW (11.5 - 14.5 %) 13.6 13.6 Plt Count (130 - 400 /CUMM) 191 198 MPV (7.4 - 10.4 FL) 9.8 9.0 Gran % (42.2 - 75.2 %) 95.8 H 57.8 Lymphocytes % (20.5 - 51.1 %) 3.4 L 32.2 Monocytes % (1.7 - 9.3 %) 0.7 L 7.7 Eosinophils % (0 - 5 %) 0.1 1.9 Basophils % (0.0 - 2.0 %) 0 L 0.4 Absolute Granulocytes (1.4 - 6.5 /CUMM) 8.8 H 5.2 Absolute Lymphocytes (1.2 - 3.4 /CUMM) 0.3 L 2.9 Absolute Monocytes (0.10 - 0.60 /CUMM) 0.1 L 0.7 H Absolute Eosinophils (0.0 - 0.7 /CUMM) 0 0.2 Absolute Basophils (0.0 - 0.2 /CUMM) 0 0 PUBS MCHC (33.0 - 37.0 G/DL) 32.5 L 32.5 L 05/11 0055 Blood Gas pH (7.35 - 7.45 PH) 7.30 *L pCO2 (35 - 45 TORR) 60 *H pO2 (80 - 100 TORR) 162 H HCO3 (21 - 28 MEQ/L) 29 H ABG O2 Sat (Measured) (>96.0 %) 98.0 P-50 (Temp Corrected) Y Carboxyhemoglobin (1.5 - 5.0 %) 0.3 L O2 Concentration % 10 LPM Temperature (97.0 - 100.0 FARH) 97.8 O2 Delivery Method A/M Miscellaneous Phlebotomy Draw Site LEFT RADIAL Microbiology Date/Time Procedure - Status Source Growth 05/11 734 Influenza Virus A & B Rapid Smear - COMP NASOPHARYN 05/11 126 Blood Culture - RECD BLOOD 05/11 116 Blood Culture - RECD BLOOD Last 48 Hrs of Labs/Joel: Laboratory Tests 05/11/16 0610: Anion Gap 6, Estimated GFR > 60, BUN/Creatinine Ratio 33.8 H, Phosphorus 2.5, CBC w Diff NO MAN DIFF REQ, RBC 4.20 L, MCV 90.4, MCH 29.4, RDW 13.6, MPV 9.8, Gran % 95.8 H, Lymphocytes % 3.4 L, Monocytes % 0.7 L, Eosinophils % 0.1, Basophils % 0 L, Absolute Granulocytes 8.8 H, Absolute Lymphocytes 0.3 L, Absolute Monocytes 0.1 L, Absolute Eosinophils 0, Absolute Basophils 0, PUBS MCHC 32.5 L 05/11/16116: Anion Gap 4 L, Estimated GFR > 60, BUN/Creatinine Ratio 30.0 H, Glucose 120 H , Calcium 9.4, Magnesium 1.7, Total Bilirubin 0.3, AST 34, ALT 42, Alkaline Phosphatase 207 H, Troponin I 0.02, Total Protein 6.5, Albumin 3.9, Globulin 2.6, Albumin/Globulin Ratio 1.5, CBC w Diff NO MAN DIFF REQ, RBC 4.51 L, MCV 89.6, MCH 29.1, RDW 13.6, MPV 9.0, Gran % 57.8, Lymphocytes % 32.2, Monocytes % 7.7, Eosinophils % 1.9, Basophils % 0.4, Absolute Granulocytes 5.2, Absolute Lymphocytes 2.9, Absolute Monocytes 0.7 H, Absolute Eosinophils 0.2, Absolute Basophils 0, PUBS MCHC 32.5 L 05/11/16 0055: pH 7.30 *L, pCO2 60 *H, pO2 162 H, HCO3 29 H, ABG O2 Sat (Measured) 98.0, P-50 (Temp Corrected) Y, Carboxyhemoglobin 0.3 L, O2 Concentration % 10 LPM, Temperature 97.8, O2 Delivery Method A/M, Phlebotomy Draw Site LEFT RADIAL Microbiology 05/11 734 NASOPHARYN: Influenza Virus A & B Rapid Smear - COMP Assessment/Plan Impression/Plan: Physical Exam General Appearance Alert, Oriented X3, No Acute Distress HEENT Atraumatic, Mucous Membr. moist/pink Neck Supple Cardiovascular Regular Rate, Normal S1, Normal S2 Lungs Diminished Breath Sounds, Mild Respiratory Distress with Accessory Muscle Use Abdomen Soft, No Tenderness, Positive Bowel Sounds Neurological No Focal Deficits Noted Extremities No Clubbing, No Cyanosis, No Edema CXR IMPRESSION: Findings consistent with chronic obstructive pulmonary disease. No overt consolidative disease or effusion. IMPRESSION This is a 71-year-old gentleman with very end-stage COPD, significant baseline hypercarbia, he usually uses 4-5 L of nasal cannula, hypertension, hyperlipidemia, morbid obesity, hypothyroidism, * Resolving Acute shortness of breath with very mild hypercarbia most likely related to acute copd exacerbation * Acute on chronic hypercarbic resp failure seems to be improving * No clinical evidence suggestive of acute bacterial pneumonitis * Poor pulmonary reserve hence he deteriorates quickly * SIg anxiety and depression * Previous history of lung nodule PT followed by his primary pulm md in [facility] PO prednisone and taper from am 60 and taper Cont po azitro and upon dc should go on azitro 3 times a week for prevention of exacerbation Check theophylline level and restart at lower dose if he was on at home Cont home antidepressants Albuterol nebs atc Sugar control WIll follow Spiriva, and upon discharge can start symbicort (hold while he is here) Stable for dc soon Consult Acknowledgment - Thank you for your consult request.
--- NOTE | 2016-05-11 14:58 | NUR ---
1451- PT HAD A 5 BEAT RUN OF SVT, Lambert HENDERSON NOTIFIED, PT ASYMPTOMATIC AND CALM IN BED AT THIS TIME. THIS NURSE WILL CONTINUE TO MONITOR PATIENT.
[2016-05-11 17:46] VITALS: BP 148/62
[2016-05-11 23:07] VITALS: BP 142/60
[2016-05-12 08:23] VITALS: BP 150/62
--- NOTE | 2016-05-12 08:52 | PN- Housestaff ---
BRANNON CONLEY 05/12/16 0851: Subjective Follow-up For: Acute on chronic hypercarbic respiratory failure Diabetes Complaints: no complaints Tele-Events Since Last Visit: Normal sinus rhythm, heart rate is 77-82, no overnight events were noted. Subjective: The patient was comfortable this warning. He was sitting in his bed when I walked into his room. Did not have any complaints. No shortness of breath, chest pain was noted. Remained afebrile overnight. Vitals were stable. Currently on 4 L oxygen. Pulse ox above 94%. As per the patient's son, the patient is going to be residing at his son's place from now on. And he wanted to find out about the management plan. Review of Systems Constitutional: Reports: see HPI. Objective Last 24 Hrs of Vital Signs/I&O Vital Signs Date Time Temp Pulse Resp B/P Pulse O2 O2 Flow FiO2 Ox Delivery Rate 05/12 0828 94 Nasal 4.0L Cannula 05/12 0823 97.7 83 20 150/62 98 Nasal 4.0L Cannula 05/12 0000 96 Nasal 4.0L Cannula 05/11 2307 97.9 80 20 142/60 100 Nasal 4.0L Cannula 05/11 2107 80 148/62 05/11 1843 98 Nasal 4.0L Cannula 05/11 1746 97.7 80 20 148/62 100 Nasal 4.0L Cannula 05/11 1600 95 Nasal 4.0L Cannula 05/11 1150 Nasal 4.0L Cannula 05/11 1149 95 Nasal 4.0L Cannula Intake & Output 05/12 1600 05/12 0800 05/12 0000 Intake Total 720 480 Output Total Balance 720 480 Intake, Oral 720 480 Physical Exam General Appearance: No Acute Distress Other Physical Findings: General Exam: AAOx3, No acute distress, Skin: No rashes, no breakdown HEENT: PERRLA, EOMI Neck: Supple, No JVD No cervical lymphadenopathy CVS: Reg Rate, Normal S1,S2, No MGR Resp: Decreased air entry bilaterally, no rhonchi/rales. Abdomen: Soft, No tenderness, Normal Bowel Sounds Neuro: Normal Speech, Strength 5/5 b/l x 4 extremities, Sensation intact, CN III -XII NL, Reflexes 2+ Extremities: No cyanosis, pedal edema Current Medications: Current Medications Sig/Renee Start time Last Medication Dose Route Stop Time Status Admin Acetaminophen 500 MG Q6P PRN 05/11 0415 AC PO Albuterol Sulfate 3 ML TID 05/11 1600 AC 05/11 INH 1841 Albuterol Sulfate 3 ML Q4H 05/11 1000 DC INH Azithromycin 250 MG DAILY 05/11 1000 AC 05/11 PO 1056 Budesonide/ 2 PUF BID 05/11 1000 DC 05/11 Formoterol Fumarate INH 1056 Enoxaparin Sodium 40 MG DAILY 05/11 1000 AC 05/11 SC 1056 Guaifenesin 600 MG Q12 05/11 1000 AC 05/11 PO 2107 Hydrochlorothiazide 12.5 MG DAILY 05/11 1000 AC 05/11 PO 1056 Hydroxyzine HCl 10 MG TID PRN 05/11 1545 AC 05/11 PO 1830 Insulin Aspart 0 TIDAC 05/11 0800 AC 05/11 SC 1724 Magnesium Oxide 400 MG BID 05/11 2200 AC 05/11 PO 2107 Melatonin 3 MG AT BEDTIME PRN 05/11 2330 AC 05/11 PO 2300 Melatonin 3 MG ONCE ONE 05/11 1345 DC 05/11 PO 05/11 1346 1415 Methylprednisolone 40 MG Q8 05/11 1400 DC 05/11 IV 05/12 0000 2107 Metoprolol Tartrate 6.25 MG BID 05/11 2200 AC 05/11 PO 2107 Misoprostol 200 MCG BID 05/11 2200 AC 05/11 PO 2108 Oxycodone/ 2 TAB Q8P PRN 05/11 0415 AC Acetaminophen PO Prednisone 60 MG DAILY 05/12 1000 AC PO Ramelteon 8 MG ONCE ONE 05/12 0045 DC 05/12 PO 05/12 0046 0046 Theophylline 150 MG DAILY 05/11 1545 AC 05/11 PO 1726 Tiotropium [place] 1 PUF DAILY 05/11 1000 AC 05/11 INH 1057 Venlafaxine HCl 150 MG 0800 05/11 1545 AC 05/11 PO 1708 Orders Fingersticks (last 24 hrs): 150, 150, 163 Assessment/Plan Assessment: 71 yo male with pmh of 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 1. Acute on chronic hypercarbic respiratory failure: AECOPD. ABG showed pH 7.30 , pCO2 60, O2 162, bicarb 29. Currently on 4 L nasal cannula. Recent ABG showed pH 7.42, PCO2 49, O2 81. Continue by mouth prednisone 60 mg a day. po azithromycin 5 days, albuterol q4 around the clock (while awake) has been ordered. Continue spiriva, and symbicort upon discharge. Pulmonary consult-Dr. Hernandez/Mj Spencer MD advising. Restarted theophylline, may have to check theophylline level in the a.m. 2. history of diabetes: Blood sugars adequately controlled. Continue NovoLog sliding scale. 3. hypertension: Currently on metoprolol, unclear if the patient is taking hydrochlorothiazide Asper previous note. #4 elevated alkaline phosphatase-with normal AST ALT. No further workup at this time. Recheck in the next few days. DVT prophylaxis with Lovenox pain pathway Full code, Son is healthcare proxy. Problem List: 1. T2DM (type 2 diabetes mellitus) 2. Diabetes 3. Acute respiratory failure with hypercapnia Pain Ratin Pain Location: None Pain Goal: Pain 4 or less Pain Plan: tylenl prn Tomorrow's Labs & Rationales: cbc ROHINI GARBER MD 05/12/16 1627: Attending MD Review Statement Attending Statement Attending MD Statement: examined this patient, discuss w/resident/PA/POST ACUTE CARE NURSE PRACTITIONER, agreed w/resident/PA/POST ACUTE CARE NURSE PRACTITIONER, reviewed EMR data (avail) Attending Assessment/Plan: Patient remains dyspneic, though he is improving. Still requiring oxygen. Will follow pulmonary recommendations, continue Prednisone and Azithromycin, recheck BEP and CBC tomorrow.
--- NOTE | 2016-05-12 12:15 | PN- Pulmonary ---
Subjective HPI/Critical Care Issues: The patient is awake and alert. He reports feeling better since admission, however he continues to have exertional dyspnea. He also has a chronic cough, but is not producing sputum. He has been receiving nebulizer treatments with good effect. The patient is inquiring about the possibility of taking Daliresp which has been recommended to him in the past. His initial ABG showed a pH of 7.30, PCO2 60, PO2 162 and bicarbonate of 29. Objective Current Medications: Current Medications Sig/Renee Start time Last Medication Dose Route Stop Time Status Admin Acetaminophen 500 MG Q6P PRN 05/11 0415 AC PO Albuterol Sulfate 3 ML TID 05/11 1600 AC 05/12 INH 0905 Azithromycin 250 MG DAILY 05/11 1000 AC 05/12 PO 0923 Budesonide/ 2 PUF BID 05/11 1000 DC 05/11 Formoterol Fumarate INH 1056 Enoxaparin Sodium 40 MG DAILY 05/11 1000 AC 05/12 SC 0924 Guaifenesin 600 MG Q12 05/11 1000 AC 05/12 PO 0923 Hydrochlorothiazide 12.5 MG DAILY 05/11 1000 AC 05/12 PO 0923 Hydroxyzine HCl 10 MG TID PRN 05/11 1545 AC 05/11 PO 1830 Insulin Aspart 0 TIDAC 05/11 0800 AC 05/11 SC 1724 Magnesium Oxide 400 MG BID 05/11 2200 AC 05/12 PO 0923 Melatonin 3 MG AT BEDTIME PRN 05/11 2330 AC 05/11 PO 2300 Melatonin 3 MG ONCE ONE 05/11 1345 DC 05/11 PO 05/11 1346 1415 Methylprednisolone 40 MG Q8 05/11 1400 DC 05/11 IV 05/12 0000 2107 Metoprolol Tartrate 6.25 MG BID 05/11 2200 AC 05/12 PO 0923 Misoprostol 200 MCG BID 05/11 2200 AC 05/12 PO 0923 Oxycodone/ 2 TAB Q8P PRN 05/11 0415 AC Acetaminophen PO Prednisone 60 MG DAILY 05/12 1000 AC 05/12 PO 0923 Ramelteon 8 MG ONCE ONE 05/12 0045 DC 05/12 PO 05/12 0046 0046 Theophylline 150 MG DAILY 05/11 1545 AC 05/12 PO 0950 Tiotropium [place] 1 PUF DAILY 05/11 1000 AC 05/12 INH 0923 Venlafaxine HCl 150 MG 0800 05/11 1545 AC 05/12 PO 0922 Vital Signs & I&O Last 24 Hrs of Vitals and I&O: Vital Signs Date Time Temp Pulse Resp B/P Pulse O2 O2 Flow FiO2 Ox Delivery Rate 05/12 0923 150/60 05/12 0907 99 Nasal 4.0L Cannula 05/12 0828 94 Nasal 4.0L Cannula 05/12 0823 97.7 83 20 150/62 98 Nasal 4.0L Cannula 05/12 0000 96 Nasal 4.0L Cannula 05/11 2307 97.9 80 20 142/60 100 Nasal 4.0L Cannula 05/11 2107 80 148/62 05/11 1843 98 Nasal 4.0L Cannula 05/11 1746 97.7 80 20 148/62 100 Nasal 4.0L Cannula 05/11 1600 95 Nasal 4.0L Cannula Intake & Output 05/12 1600 05/12 0800 05/12 0000 Intake Total 720 480 Output Total Balance 720 480 Intake, Oral 720 480 Exam General Appearance: alert, awake, no significant use of accessory muscles at rest Head: atraumatic, normal appearance Neck: supple Respiratory: very diminished breath sounds bilaterally, faint bilateral wheezes and rhonchi heard, the lungs expand symmetrically and the trachea is midline Cardiovascular: regular rate/rhythm (heart sounds distant) Abdomen: normal bowel sounds, soft, non-tender Extremities: no edema Skin: intact, warm/dry Results Last 24 Hrs of Lab Results: No current laboratory studies available. Last 24 Hrs of Micro Results: Cultures negative to date. Diagnostic Data CXR Findings: Findings consistent with chronic obstructive pulmonary disease. No overt consolidative disease or effusion. Impression/Plan Impression/Plan Impression/Plan: 1. End-stage COPD with significant baseline hypercarbia and chronically oxygen dependent, on 4-5 L nasal cannula. The patient was admitted with an acute on chronic hypercarbic respiratory failure, secondary to an exacerbation of COPD. 2. History of hyperlipidemia and hypertension. 3. Previous history of lung nodule which is followed by his primary rotary envelope machine operator. 4. Significant anxiety and depression. Recommendations: * Check a repeat blood gas. * If the patient has persistent respiratory acidosis, he may benefit from BiPAP therapy. * Continue prednisone 60 mg today. * Will begin steroid taper as the patient improves. * Continue Spiriva. * Complete 5 days of oral azithromycin. * Please request respiratory to provide the patient albuterol nebulizer treatments 4 times daily while awake. * Use extra caution with beta blockers in this patient. * Continue theophylline, noting that the patient's kristin level was subtherapeutic. Monitor for side effects as the medication does have a narrow therapeutic window. * The patient would benefit from taking Daliresp, however he reports his insurance does not cover it. He is requesting case management to look into this. * Continue DVT prophylaxis at all times.
[2016-05-12 16:02] VITALS: BP 140/72
[2016-05-13 01:07] VITALS: BP 160/80
[2016-05-13 08:25] LABS: ABSOLUTE BASOPHIL COUNT 0 /CUMM (0.0-0.2); ABSOLUTE EOSINOPHIL COUNT 0 /CUMM (0.0-0.7); ABSOLUTE GRANULOCYTE CT 8.9 /CUMM (1.4-6.5); ABSOLUTE LYMPH COUNT 1.5 /CUMM (1.2-3.4); ABSOLUTE MONOCYTE COUNT 0.9 /CUMM (0.10-0.60); BASOPHIL % 0.2 % (0.0-2.0); EOSINOPHIL % 0.2 % (0-5); GRANULOCYTE % 78.7 % (42.2-75.2); HEMATOCRIT 37.9 % (42-52); MEAN CORPUSCULAR HGB 29.3 PG (27.0-31.0); MEAN CORPUSCULAR HGB CONC 32.8 G/DL (33.0-37.0); MEAN CORPUSCULAR VOLUME 89.3 FL (80.0-94.0); MEAN PLATELET VOLUME 10.2 FL (7.4-10.4); PLATELET COUNT 231 /CUMM (130-400); RBC DISTRIBUTION WIDTH 13.5 % (11.5-14.5); RED BLOOD CELL CT 4.25 /CUMM (4.70-6.10); WHITE BLOOD CELL COUNT 11.4 /CUMM (4.8-10.8)
[2016-05-13 08:47] VITALS: BP 163/73
--- NOTE | 2016-05-13 09:58 | PN- Housestaff ---
OMEGA ZHOU,ANTONIO 05/13/16 0958: Subjective Follow-up For: Acute on chronic hypercarbic respiratory failure Diabetes Subjective: I saw and examined the patient today morning He is lying on the bed, still gasping for breath, at his baseline 4L. concerned about feeling shaky. otherwise no concerns. Review of Systems Constitutional: Reports: see HPI. Comments: ROS negative except the above. Objective Last 24 Hrs of Vital Signs/I&O Vital Signs Date Time Temp Pulse Resp B/P Pulse O2 O2 Flow FiO2 Ox Delivery Rate 05/13 0923 160/70 05/13 0847 97.8 73 18 163/73 99 Nasal 4.0L Cannula 05/13 0847 95 Nasal 4.0L Cannula 05/13 0818 95 Nasal 4.0L Cannula 05/13 0107 97.6 81 18 160/80 98 Nasal 4.0L Cannula 05/13 0000 96 Nasal 4.0L Cannula 05/12 2125 88 140/72 05/12 1919 99 Nasal 4.0L Cannula 05/12 1643 94 Nasal 4.0L Cannula 05/12 1602 97.9 88 18 140/72 96 Nasal 4.0L Cannula Intake & Output 05/13 1600 05/13 0800 05/13 0000 Intake Total 620 480 Output Total Balance 620 480 Intake, Oral 620 480 Physical Exam General Appearance: Alert, Oriented X3, Cooperative, No Acute Distress Skin: No Rashes, No Breakdown HEENT: Atraumatic, PERRLA, EOMI Neck: Supple Cardiovascular: Regular Rate, Normal S1, Normal S2 Lungs: Clear to Auscultation, Normal Air Movement Abdomen: Normal Bowel Sounds, Soft, No Tenderness Neurological: Normal Tone, Sensation Intact Extremities: No Clubbing, No Cyanosis, No Edema Current Medications: Current Medications Sig/Renee Start time Last Medication Dose Route Stop Time Status Admin Acetaminophen 500 MG Q6P PRN 05/11 0415 AC PO Albuterol Sulfate 3 ML EVERY 4 HRS/AWAKE 05/13 1999 AC 05/13 INH 2014 Azithromycin 250 MG DAILY 05/11 1000 AC 05/13 PO 0923 Enoxaparin Sodium 40 MG DAILY 05/11 1000 AC 05/13 SC 0923 Guaifenesin 600 MG Q12 05/11 1000 AC 05/13 PO 2219 Hydrochlorothiazide 12.5 MG DAILY 05/11 1000 AC 05/13 PO 0924 Hydroxyzine HCl 10 MG TID PRN 05/11 1545 AC 05/11 PO 1830 Insulin Aspart 0 TIDAC 05/11 0800 AC 05/12 SC 1726 Magnesium Oxide 400 MG BID 05/11 2200 AC 05/13 PO 2219 Melatonin 3 MG AT BEDTIME PRN 05/11 2330 AC 05/11 PO 2300 Metoprolol Tartrate 6.25 MG BID 05/11 2200 AC 05/13 PO 2219 Misoprostol 200 MCG BID 05/11 2200 AC 05/13 PO 2219 Oxycodone/ 2 TAB Q8P PRN 05/11 0415 AC Acetaminophen PO Prednisone 50 MG DAILY 05/14 1000 AC PO 05/15 0959 Prednisone 60 MG DAILY 05/12 1000 DC 05/13 PO 0924 Theophylline 150 MG DAILY 05/11 1545 AC 05/13 PO 0923 Tiotropium [place] 1 PUF DAILY 05/11 1000 AC 05/13 INH 0924 Venlafaxine HCl 150 MG 0800 05/11 1545 AC 05/13 PO 0923 Last 24 Hrs of Lab/Joel Results Last 24 Hrs of Labs/Mics: Laboratory Tests 05/13/16 0620: Anion Gap 3 L, Estimated GFR > 60, BUN/Creatinine Ratio 38.0 H, CBC w Diff NO MAN DIFF REQ, RBC 4.25 L, MCV 89.3, MCH 29.3, RDW 13.5, MPV 10.2, Gran % 78.7 H, Lymphocytes % 13.3 L, Monocytes % 7.6, Eosinophils % 0.2, Basophils % 0.2, Absolute Granulocytes 8.9 H, Absolute Lymphocytes 1.5, Absolute Monocytes 0.9 H, Absolute Eosinophils 0, Absolute Basophils 0, PUBS MCHC 32.8 L Lines/Diet/Fluids Lines: peripheral lines Assessment/Plan Assessment: 71 yo male with pmh of 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 1. Acute on chronic hypercarbic respiratory failure: AECOPD. ABG showed pH 7.30 , pCO2 60, O2 162, bicarb 29. Currently on 4 L nasal cannula. Recent ABG showed pH 7.42, PCO2 49, O2 81. Continue by mouth prednisone 50 mg a day. po azithromycin 5 days, albuterol q4 around the clock (while awake) has been ordered. Continue spiriva, and symbicort upon discharge. Pulmonary consult-Dr. Hernandez/Mj Spencer MD advising. Restarted theophylline. 2. history of diabetes: Blood sugars adequately controlled. Continue NovoLog sliding scale. 3. hypertension: Currently on metoprolol, unclear if the patient is taking hydrochlorothiazide Asper previous note. #4 elevated alkaline phosphatase-with normal AST ALT. No further workup at this time. Recheck in the next few days. DVT prophylaxis with Lovenox pain pathway Full code, Son is healthcare proxy. Problem List: 1. Elevated troponin 2. Acute respiratory failure with hypercapnia 3. Diabetes Pain Ratin Pain Location: n/a Pain Goal: Pain 4 or less Pain Plan: tylenol prn Tomorrow's Labs & Rationales: cbc to monitor white count [facility]16 1424: Attending MD Review Statement Attending Statement Attending MD Statement: examined this patient, discuss w/resident/PA/DAY LIGHT RELIEF OPERATOR, agreed w/resident/PA/DAY LIGHT RELIEF OPERATOR, reviewed EMR data (avail) Attending Assessment/Plan: Patient remains dyspneic, though he is improving. Still requiring oxygen. Will follow pulmonary recommendations, continue Prednisone and Azithromycin, recheck BEP and CBC tomorrow. Would likely benefit from pulmonary rehab, will follow PT recommendations
--- NOTE | 2016-05-13 11:31 | PN- Pulmonary ---
Subjective HPI/Critical Care Issues: The patient is awake and alert. He reports feeling improved overall. He feels less chest congestion. He continues to have shortness of breath after ambulating only a few steps. He denies any chest pain, fever, chills or any other new issues. The patient's ABG has significantly improved, noting he has now 7.42/49/81/31. Objective Current Medications: Current Medications Sig/Renee Start time Last Medication Dose Route Stop Time Status Admin Acetaminophen 500 MG Q6P PRN 05/11 0415 AC PO Albuterol Sulfate 3 ML Q6 05/12 2359 DC INH Albuterol Sulfate 3 ML EVERY 4 HRS/AWAKE 05/12 2000 AC 05/13 INH 0845 Albuterol Sulfate 3 ML TID 05/11 1600 DC 05/12 INH 1321 Azithromycin 250 MG DAILY 05/11 1000 AC 05/13 PO 0923 Diphenhydramine HCl 25 MG ONCE ONE 05/12 2215 DC 05/12 PO 05/12 2216 2302 Enoxaparin Sodium 40 MG DAILY 05/11 1000 AC 05/13 SC 0923 Guaifenesin 600 MG Q12 05/11 1000 AC 05/13 PO 0923 Hydrochlorothiazide 12.5 MG DAILY 05/11 1000 AC 05/13 PO 0924 Hydroxyzine HCl 10 MG TID PRN 05/11 1545 AC 05/11 PO 1830 Insulin Aspart 0 TIDAC 05/11 0800 AC 05/12 SC 1726 Magnesium Oxide 400 MG BID 05/11 2200 AC 05/13 PO 0923 Melatonin 3 MG AT BEDTIME PRN 05/11 2330 AC 05/11 PO 2300 Metoprolol Tartrate 6.25 MG BID 05/11 2200 AC 05/13 PO 0923 Misoprostol 200 MCG BID 05/11 2200 AC 05/13 PO 0924 Oxycodone/ 2 TAB Q8P PRN 05/11 0415 AC Acetaminophen PO Prednisone 60 MG DAILY 05/12 1000 AC 05/13 PO 0924 Theophylline 150 MG DAILY 05/11 1545 AC 05/13 PO 0923 Tiotropium [place] 1 PUF DAILY 05/11 1000 AC 05/13 INH 0924 Venlafaxine HCl 150 MG 0800 05/11 1545 AC 05/13 PO 0923 Vital Signs & I&O Last 24 Hrs of Vitals and I&O: Vital Signs Date Time Temp Pulse Resp B/P Pulse O2 O2 Flow FiO2 Ox Delivery Rate 05/13 0923 160/70 05/13 0847 97.8 73 18 163/73 99 Nasal 4.0L Cannula 05/13 0847 95 Nasal 4.0L Cannula 05/13 0818 95 Nasal 4.0L Cannula 05/13 0107 97.6 81 18 160/80 98 Nasal 4.0L Cannula 05/13 0000 96 Nasal 4.0L Cannula 05/12 2125 88 140/72 05/12 1919 99 Nasal 4.0L Cannula 05/12 1643 94 Nasal 4.0L Cannula 05/12 1602 97.9 88 18 140/72 96 Nasal 4.0L Cannula Intake & Output 05/13 1600 05/13 0800 05/13 0000 Intake Total 620 480 Output Total Balance 620 480 Intake, Oral 620 480 Exam General Appearance: alert, awake, no significant use of accessory muscles at rest Head: atraumatic, normal appearance Neck: supple Respiratory: very diminished breath sounds bilaterally, faint bilateral wheezes and rhonchi heard, the lungs expand symmetrically and the trachea is midline Cardiovascular: regular rate/rhythm (heart sounds distant) Abdomen: normal bowel sounds, soft, non-tender Extremities: no edema Skin: intact, warm/dry Results Last 24 Hrs of Lab Results: Laboratory Tests 05/13/16 0620: Anion Gap 3 L, Estimated GFR > 60, BUN/Creatinine Ratio 38.0 H, CBC w Diff NO MAN DIFF REQ, RBC 4.25 L, MCV 89.3, MCH 29.3, RDW 13.5, MPV 10.2, Gran % 78.7 H, Lymphocytes % 13.3 L, Monocytes % 7.6, Eosinophils % 0.2, Basophils % 0.2, Absolute Granulocytes 8.9 H, Absolute Lymphocytes 1.5, Absolute Monocytes 0.9 H, Absolute Eosinophils 0, Absolute Basophils 0, PUBS MCHC 32.8 L 05/12/16 1316: pH 7.42, pCO2 49 H, pO2 81, HCO3 31 H, ABG O2 Sat (Measured) 96.0, Carboxyhemoglobin 0.3 L, O2 Concentration % 3L, O2 Delivery Method NC, Phlebotomy Draw Site LEFT RADIAL Impression/Plan Impression/Plan Impression/Plan: 1. End-stage COPD with significant baseline hypercarbia and chronically oxygen dependent, on 4-5 L nasal cannula. He was admitted with acute on chronic respiratory failure secondary to COPD exacerbation. The patient's respiratory acidosis has improved. 2. History of hyperlipidemia and hypertension. 3. Previous history of lung nodule which is followed by his primary weld inspector. 4. Significant anxiety and depression. 5. Leukocytosis, likely secondary to steroids. Recommendations: * Decrease prednisone to 50 mg daily. Continue slow taper. * Continue Spiriva. * Complete 5 days of oral azithromycin. * Albuterol nebulizer treatments 4 times daily while awake. * Use extra caution with beta blockers in this patient. * Continue theophylline, noting that the patient's kristin level was subtherapeutic. Monitor for side effects as this medication has a narrow therapeutic window. * The patient would benefit from taking Daliresp, however he reports his insurance does not cover it. He is requesting case management to look into this. * Continue DVT prophylaxis at all times.
[2016-05-13 16:21] VITALS: BP 102/83
[2016-05-14 01:05] VITALS: BP 154/80
--- NOTE | 2016-05-14 08:09 | PN- Housestaff ---
DELL ZHOU,SANTIAGO 05/14/16 0809: Subjective Follow-up For: COPD exacerbation Complaints: no complaints Tele-Events Since Last Visit: NSR 66- Subjective: Pt was seen and examined at bedside. He's breathing okay on 4L. He denies any chest pain. He was ambulating with nasal oxygen. Review of Systems Constitutional: Denies: chills, fever, weakness. EENTM: Reports: no symptoms. Cardiovascular: Denies: chest pain, palpitations, peripheral edema, syncope. Respiratory: Denies: cough, short of breath, sputum production, wheezing. Gastrointestinal: Reports: no symptoms. Genitourinary: Reports: no symptoms. Musculoskeletal: Reports: no symptoms. Skin: Reports: no symptoms. Neurological/Psychological: Reports: no symptoms. Hematologic/Endocrine: Reports: no symptoms. Objective Last 24 Hrs of Vital Signs/I&O Vital Signs Date Time Temp Pulse Resp B/P Pulse O2 O2 Flow FiO2 Ox Delivery Rate 05/14 0857 68 150/60 05/14 0833 98 Nasal 4.0L Cannula 05/14 0831 98 Nasal 4.0L Cannula 05/14 0823 97.6 68 20 94/60 98 Nasal 4.0L Cannula 05/14 0105 98.1 80 20 154/80 96 Nasal 4.0L Cannula 05/14 0000 Nasal 4.0L Cannula 05/13 2219 98 102/83 05/13 2015 94 Nasal 4.0L Cannula 05/13 1644 99 Nasal 4.0L Cannula 05/13 1627 95 Nasal 4.0L Cannula 05/13 1621 97.8 98 18 102/83 97 Nasal 4.0L Cannula Intake & Output 05/14 1600 05/14 0800 05/14 0000 Intake Total 200 100 Output Total Balance 200 100 Intake, Oral 200 100 Physical Exam General Appearance: Alert, Oriented X3, Cooperative, No Acute Distress Skin: No Rashes, No Breakdown, No Significant Lesion HEENT: Atraumatic, PERRLA, EOMI, Mucous Membr. moist/pink Neck: Supple, No JVD, No LAD Lymphatic: Cervical nl Cardiovascular: Regular Rate, Normal S1, Normal S2, No Murmurs Lungs: Clear to Auscultation, Normal Air Movement Abdomen: Normal Bowel Sounds, Soft, No Tenderness Neurological: Normal Gait, Normal Speech, Strength at 5/5 X4 Ext, Normal Tone, Sensation Intact Extremities: No Edema, Normal Pulses Vascular: Normal Pulses, Pulses Symmetrical Current Medications: Current Medications Sig/Renee Start time Last Medication Dose Route Stop Time Status Admin Acetaminophen 500 MG Q6P PRN 05/11 0415 AC PO Albuterol Sulfate 3 ML EVERY 4 HRS/AWAKE 05/12 2000 AC 05/14 INH 1109 Azithromycin 250 MG DAILY 05/11 1000 AC 05/14 PO 0851 Enoxaparin Sodium 40 MG DAILY 05/11 1000 AC 05/14 SC 0857 Guaifenesin 600 MG Q12 05/11 1000 AC 05/14 PO 0851 Hydrochlorothiazide 12.5 MG DAILY 05/11 1000 AC 05/14 PO 0852 Hydroxyzine HCl 10 MG TID PRN 05/11 1545 AC 05/11 PO 1830 Insulin Aspart 0 TIDAC 05/11 0800 AC 05/12 SC 1726 Magnesium Oxide 400 MG BID 05/11 2200 AC 05/14 PO 0851 Melatonin 3 MG AT BEDTIME PRN 05/11 2330 AC 05/11 PO 2300 Metoprolol Tartrate 6.25 MG BID 05/11 2200 AC 05/14 PO 0857 Misoprostol 200 MCG BID 05/11 2200 AC 05/14 PO 0850 Oxycodone/ 2 TAB Q8P PRN 05/11 0415 AC Acetaminophen PO Prednisone 50 MG DAILY 05/14 1000 AC 05/14 PO 05/15 0959 0851 Prednisone 60 MG DAILY 05/12 1000 DC 05/13 PO 0924 Theophylline 150 MG DAILY 05/11 1545 AC 05/14 PO 0850 Tiotropium [place] 1 PUF DAILY 05/11 1000 AC 05/14 INH 0852 Venlafaxine HCl 150 MG 0800 05/11 1545 AC 05/14 PO 0852 Assessment/Plan Assessment: 71 yo male with pmh of 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 1. Acute on chronic hypercarbic respiratory failure: AECOPD. Repeat ABG showing improved PCO2 from 60 to 49 on 05/12. Patient is on po prednisone taper dose with po azithromycin. Patient was saturating 94-95% with ambulation. Will discharge him with po 3 times per week and prednisone taper. Continue spiriva, symbicort, ant theophyline upon discharge. Patient will follow up with Dr. Hernandez as outpt. 2. history of diabetes: AM blood sugar was in 70-90s. NovoLog sliding scale was decreased. 3. hypertension: Continue metoprolol and hydrochlorothiazide. 4. elevated alkaline phosphatase-with normal AST ALT. No further workup at this time. Recheck with a primary doctor. DVT prophylaxis with Lovenox pain pathway Full code, Son is healthcare proxy. Problem List: 1. Acute respiratory failure with hypercapnia 2. COPD EXACERBATION 3. Hypertension 4. Diabetes Pain Ratin Pain Location: NA Pain Goal: Pain 4 or less Pain Plan: tyrenol prn Tomorrow's Labs & Rationales: D/C today DVT/Prophylaxis: pharmacological Discharge Plan Discharge Disposition: home Stable for Discharge? Yes Anticipated Discharge (Day): today ROHINI GARBER MD 05/14/16 1247: Attending MD Review Statement Attending Statement Attending MD Statement: examined this patient, discuss w/resident/PA/[employer], agreed w/resident/PA/[employer], reviewed EMR data (avail) Attending Assessment/Plan: Patient is significantly improved today and is ambulating around the floor on his baseline 4L NC without difficulty or dyspnea. Ambulatory saturation is 95% on 4L NC. Patient is stable for discharge home. Will continue Prednisone taper, Azithromycin MWF, continue home medications, follow up with Dr. Hernandez as an outpatient.
[2016-05-14] MEDS ORDERED: PREDNISONE20 M1 PO ×2 (08:15→15:35)
[2016-05-14] MEDS ORDERED: AZITHROMYCIN250 M1 PO ×2 (08:15→13:57)
[2016-05-14 08:19] LABS: ABSOLUTE BASOPHIL COUNT 0 /CUMM (0.0-0.2); ABSOLUTE EOSINOPHIL COUNT 0 /CUMM (0.0-0.7); ABSOLUTE LYMPH COUNT 1.3 /CUMM (1.2-3.4); ABSOLUTE MONOCYTE COUNT 0.7 /CUMM (0.10-0.60); BASOPHIL % 0.2 % (0.0-2.0); EOSINOPHIL % 0.4 % (0-5); GRANULOCYTE % 74.3 % (42.2-75.2); HEMATOCRIT 37.3 % (42-52); MEAN CORPUSCULAR HGB 29.4 PG (27.0-31.0); MEAN CORPUSCULAR HGB CONC 32.9 G/DL (33.0-37.0); MEAN CORPUSCULAR VOLUME 89.3 FL (80.0-94.0); MEAN PLATELET VOLUME 9.6 FL (7.4-10.4); PLATELET COUNT 208 /CUMM (130-400); RBC DISTRIBUTION WIDTH 13.2 % (11.5-14.5); RED BLOOD CELL CT 4.18 /CUMM (4.70-6.10); WHITE BLOOD CELL COUNT 8.1 /CUMM (4.8-10.8)
[2016-05-14 08:23] VITALS: BP 94/60
--- NOTE | 2016-05-14 08:23 | Patient Discharge Instructions ---
Discharge Instructions General Discharge Information You were seen/treated for: Acute hypercarbic respiratory failure COPD exacerbation Special Instructions: Please continue azithromycin 3 times per week and po prednisone taper after discharge Please follow up with a primary doctor within 1 week after discharge Please follow up with Dr. Hernandez within 1 week after discharge for COPD management Diet Continue normal diet: Yes Recommended Diet: Diabetic Activity Full Activity/No Limits: No Activity Self Limited: Yes Acute Coronary Syndrome Inclusion Criteria At DC or during hospital stay patient has or had the following: ACS DIAGNOSIS No Discharge Core Measures Meds if any: Prescribed or Continued at Discharge Meds if any: NOT Prescribed or Continued at Discharge Congestive Heart Failure Inclusion Criteria At DC or during hospital stay patient has or had the following: CHF DIAGNOSIS No Discharge Core Measures Meds if any: Prescribed or Continued at Discharge Meds if any: NOT Prescribed or Continued at Discharge Cerebrovascular accident Inclusion Criteria At DC or during hospital stay patient has or had the following: CVA/TIA Diagnosis No Discharge Core Measures Meds if any: Prescribed or Continued at Discharge Meds if any: NOT Prescribed or Continued at Discharge Venous thromboembolism Inclusion Criteria VTE Diagnosis No VTE Type NONE VTE Confirmed by (Test) NONE Discharge Core Measures - Per Current guidelines, there needs to be overlap - treatment for the first 5 days of Warfarin therapy. - If discharged on Warfarin prior to 5 days of - overlap therapy, the patient will need to be - assessed for post discharge needs including - *Post discharge parental anticoagulation - *Warfarin and/or parental anticoagulation education - *Follow up date to check INR post discharge At least 5 days overlap therapy as Inpatient No Meds if any: Prescribed or Continued at Discharge Note: Overlap Therapy is Warfarin and Anticoagulant Meds if any: NOT Prescribed or Continued at Discharge
[2016-05-14 08:57] VITALS: BP 150/60
--- NOTE | 2016-05-14 10:11 | PN- Pulmonary ---
Subjective HPI/Critical Care Issues: Doing better no cough no wheezing Afebrile Vital signs otherwise stable Review of symptoms otherwise unremarkable Significant data reviewed Baseline bicarbonate is 36 potassium is 4.0 hemoglobin and hematocrit appears to be stable his ABG revealed that his baseline hypercarbia is now back to his baseline which is 49 PCO2. His cultures have been negative and his chest x-ray upon admission was unremarkable Objective Current Medications: Current Medications Sig/Renee Start time Last Medication Dose Route Stop Time Status Admin Acetaminophen 500 MG Q6P PRN 05/11 0415 AC PO Albuterol Sulfate 3 ML EVERY 4 HRS/AWAKE 05/12 2000 AC 05/14 INH 0833 Azithromycin 250 MG DAILY 05/11 1000 AC 05/14 PO 0851 Enoxaparin Sodium 40 MG DAILY 05/11 1000 AC 05/14 SC 0857 Guaifenesin 600 MG Q12 05/11 1000 AC 05/14 PO 0851 Hydrochlorothiazide 12.5 MG DAILY 05/11 1000 AC 05/14 PO 0852 Hydroxyzine HCl 10 MG TID PRN 05/11 1545 AC 05/11 PO 1830 Insulin Aspart 0 TIDAC 05/11 0800 AC 05/12 SC 1726 Magnesium Oxide 400 MG BID 05/11 2200 AC 05/14 PO 0851 Melatonin 3 MG AT BEDTIME PRN 05/11 2330 AC 05/11 PO 2300 Metoprolol Tartrate 6.25 MG BID 05/11 2200 AC 05/14 PO 0857 Misoprostol 200 MCG BID 05/11 2200 AC 05/14 PO 0850 Oxycodone/ 2 TAB Q8P PRN 05/11 0415 AC Acetaminophen PO Prednisone 50 MG DAILY 05/14 1000 AC 05/14 PO 05/15 0959 0851 Prednisone 60 MG DAILY 05/12 1000 DC 05/13 PO 0924 Theophylline 150 MG DAILY 05/11 1545 AC 05/14 PO 0850 Tiotropium [place] 1 PUF DAILY 05/11 1000 AC 05/14 INH 0852 Venlafaxine HCl 150 MG 0800 05/11 1545 AC 05/14 PO 0852 Vital Signs & I&O Last 24 Hrs of Vitals and I&O: Vital Signs Date Time Temp Pulse Resp B/P Pulse O2 O2 Flow FiO2 Ox Delivery Rate 05/14 856 68 150/60 05/15 0733 98 Nasal 4.0L Cannula 05/15 0731 98 Nasal 4.0L Cannula 05/14 08 97.6 68 20 94/60 98 Nasal 4.0L Cannula 05/14 0105 98.1 80 20 154/80 96 Nasal 4.0L Cannula 05/14 0000 Nasal 4.0L Cannula 05/13 2219 98 102/83 05/13 2014 94 Nasal 4.0L Cannula 05/13 1644 99 Nasal 4.0L Cannula 05/13 1627 95 Nasal 4.0L Cannula 05/13 1621 97.8 98 18 102/83 97 Nasal 4.0L Cannula Intake & Output 05/14 1600 05/14 0800 05/14 0000 Intake Total 200 100 Output Total Balance 200 100 Intake, Oral 200 100 Laboratory Tests 05/14 05/13 0632 0620 Chemistry Sodium (137 - 145 mmol/L) 136 L 131 L Potassium (3.5 - 5.1 mmol/L) 4.0 4.3 Chloride (98 - 107 mmol/L) 95 L 95 L Carbon Dioxide (22 - 30 mmol/L) 36 H 33 H Anion Gap (5 - 16) 6 3 L BUN (9 - 20 mg/dL) 33 H 38 H Creatinine (0.7 - 1.2 mg/dL) 0.9 1.0 Estimated GFR (>60 ml/min) > 60 > 60 BUN/Creatinine Ratio (7 - 25 %) 36.7 H 38.0 H Hematology CBC w Diff NO MAN DIFF REQ NO MAN DIFF REQ WBC (4.8 - 10.8 /CUMM) 8.1 11.4 H RBC (4.70 - 6.10 /CUMM) 4.18 L 4.25 L Hgb (14.0 - 18.0 G/DL) 12.3 L 12.4 L Hct (42 - 52 %) 37.3 L 37.9 L MCV (80.0 - 94.0 FL) 89.3 89.3 MCH (27.0 - 31.0 PG) 29.4 29.3 RDW (11.5 - 14.5 %) 13.2 13.5 Plt Count (130 - 400 /CUMM) 208 231 MPV (7.4 - 10.4 FL) 9.6 10.2 Gran % (42.2 - 75.2 %) 74.3 78.7 H Lymphocytes % (20.5 - 51.1 %) 16.2 L 13.3 L Monocytes % (1.7 - 9.3 %) 8.9 7.6 Eosinophils % (0 - 5 %) 0.4 0.2 Basophils % (0.0 - 2.0 %) 0.2 0.2 Absolute Granulocytes (1.4 - 6.5 /CUMM) 6.0 8.9 H Absolute Lymphocytes (1.2 - 3.4 /CUMM) 1.3 1.5 Absolute Monocytes (0.10 - 0.60 /CUMM) 0.7 H 0.9 H Absolute Eosinophils (0.0 - 0.7 /CUMM) 0 0 Absolute Basophils (0.0 - 0.2 /CUMM) 0 0 PUBS MCHC (33.0 - 37.0 G/DL) 32.9 L 32.8 L 05/12 1316 Blood Gas pH (7.35 - 7.45 PH) 7.42 pCO2 (35 - 45 TORR) 49 H pO2 (80 - 100 TORR) 81 HCO3 (21 - 28 MEQ/L) 31 H ABG O2 Sat (Measured) (>96.0 %) 96.0 Carboxyhemoglobin (1.5 - 5.0 %) 0.3 L O2 Concentration % 3L O2 Delivery Method NC Miscellaneous Phlebotomy Draw Site LEFT RADIAL Impression/Plan Impression/Plan Impression/Plan: Physical Exam General Appearance Alert, Oriented X3, No Acute Distress HEENT Atraumatic, Mucous Membr. moist/pink Neck Supple Cardiovascular Regular Rate, Normal S1, Normal S2 Lungs Diminished Breath Sounds, Mild Respiratory Distress with Accessory Muscle Use Abdomen Soft, No Tenderness, Positive Bowel Sounds Neurological No Focal Deficits Noted Extremities No Clubbing, No Cyanosis, No Edema CXR IMPRESSION: Findings consistent with chronic obstructive pulmonary disease. No overt consolidative disease or effusion. IMPRESSION This is a 71-year-old gentleman with very end-stage COPD, significant baseline hypercarbia, he usually uses 4-5 L of nasal cannula, hypertension, hyperlipidemia, morbid obesity, hypothyroidism, * Resolved Acute shortness of breath with very mild hypercarbia most likely related to acute copd exacerbation * Resolved Acute on chronic hypercarbic resp failure * Poor pulmonary reserve hence he deteriorates quickly * SIg anxiety and depression * Previous history of lung nodule PT followed by his primary pulm md in [facility] PO prednisone 50 and taper Cont po azitro and upon dc should go on azitro 3 times a week for prevention of exacerbation Check theophylline Cont home antidepressants Albuterol nebs atc Sugar control WIll follow Spiriva, and upon discharge can start symbicort upon dc Stable for dc soon
--- NOTE | 2016-05-14 10:25 | Discharge Summary ---
Visit Information Visit Dates Admission Date: 05/11/16 Discharge Date: 05/14/16 Hospital Course Course Attending Physician: ROHINI GARBER MD Primary Care Physician: SPENCER ZHOU,EMANUEL Menezes Consulting Request: Consulting Specialty: Pulmonary Disease Consulting Physician: Dr. 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 Patient tried his home albuterol without improvement. According to his son, patient was using increased oxygen at home since last 2 days. Patient also denied increased cough, sputum production, fever, chills, chest pain, abdominal pain or any other symptoms. Initial vitals: 97.8F, AK 122, RR 24, BP 214/108, requiring 6 L to saturate at 94% later on started on BiPAP. On exam: Alert, Oriented 3, cooperative, in respiratory distress, accessory muscles in use, Skin: no obvious skin rashes or inflammation, HEENT: mucosa moist, Neck: supple, no JVD, no lymphadenopathy, CVS: S1-S2, RRR, Lungs: Markedly decreased breath sounds bilaterally, Abdomen: Soft, NT, ND, bowel sounds present, Ext: no dependent edema, Peripheral pulses perfusion normal, Neurological: no focal neurological deficit Labs: CBC, BMP, LFT unremarkable, alkaline phosphatase 207, troponin 0.02. ABG: pH7.30/pWN566/[id number]/bicarb 29 on 10 L. CXR: Findings consistent with chronic obstructive pulmonary disease. No overt consolidative disease or effusion. EKG Results: Sinus tachycardia, HR 114, Multiple premature atrial complexes, QTc 452 Patient was admitted to telemetry floor for following problems; 1. Acute on chronic hypercarbic respiratory failure: Secondary to acute COPD exacerbation without known exacerbating factor. He improved markedly with BiPAP, oxygen requirement was decreased from 6L to 4 L nasal cannula. He was given IV methylprednisolone 40 mg every 8 hours which was decreased to po prednisone. Pulmonary consult was obtained from Dr. Hernandez. Patient continued po azithromycin 250mg qd, thyeophylline 150mg qd, INH albuterol q4 around the clock & spiriva. Patient will be discharged with po azithromycin 3 times per week and po prednisone taper dose per pulmonary recommendation. He will follow Dr. Hernandez for outpatient management. 2. History of diabetes: He stopped taking glipizide from home medication lists. Accuchecks were TIDAC/HS and novolog s/s was given during admission. Please follow up with a primary care doctor. 3. Hypertension: Patient continued home dose of po metoprolol 6.25mg bid and HCTZ 12.5mg daily. 4. Anxiety/Depression: Patient continued home dose of rozerem, hydroxyzine, melatonin, effexor. 5. Elevated alkaline phosphatase: Asymptomatic with normal AST/ALT. Please follow up with a primary doctor. DVT prophylaxis with Lovenox pain pathway Full code Allergies: Coded Allergies: NO KNOWN ALLERGIES (11/03/14) Pertinent Lab Results: follow up ABG: pH 7.42 pCO2 49 pO2 81 bicarb 31 96% on 3L Disposition Summary Disposition Principal Diagnosis: Acute on chronic hypercarbic respiratory failure Acute exacerbation of COPD Additional Diagnosis: Anxiety Depression HTN Hx of DM Discharge Disposition: home or self care Discharge Instructions General Discharge Information Code Status: Full Code Patient's Diet: Diabetic diet Patient's Activity: Increase as tolerated Follow-Up Instructions/Appts: Please continue azithromycin 3 times per week and po prednisone taper after discharge Please follow up with a primary doctor within 1 week after discharge Please follow up with Dr. Hernandez within 1 week after discharge for COPD management Medications at Discharge Discharge Medications: Continue taking these medications: Tiotropium [place] (Spiriva) 18 MCG CAP.W.DEV 1 Capsule Inhale through mouth DAILY Comments: Last Taken: 05/14/16 Time: 9:00 AM Theophylline (Theophylline) 300 MG T12 0.5 Tablet ORAL DAILY Comments: Last Taken:01/21/15 Time:10:00AM Albuterol Sulfate (Proair Hfa) 90 MCG HFA.AER.AD 2 Puff Inhale through mouth EVERY 4-6 HOURS NEEDED as needed for COPD Comments: NOT GIVEN IN HOSPITAL Albuterol Sulfate (Albuterol Sulfate) 2.5 MG/3 ML (0.083 %) VIAL.NEB 3 Milliliters Inhale through mouth EVERY 4 HOURS NEEDED as needed for SHORTNESS OF BREATH Comments: Last Taken: 05/14/16 Time: 11:00 Magnesium Oxide (Magnesium Oxide) 400 MG TAB 1 Tablet ORAL TWICE DAILY Qty = 8 Instructions: TAKE FOR NEXT 4 DAYS THEN STOP Comments: Last Taken:01/21/15 Time:1:30PM Metoprolol Tartrate (Metoprolol Tartrate) 25 MG TABLET 0.25 Tablet ORAL TWICE DAILY Comments: Last Taken: 05/14/16 Time: 9:00 AM Venlafaxine HCl (Venlafaxine HCl ER) 150 MG CAP.ER.24H 1 Capsule ORAL DAILY Comments: Last Taken: 05/14/16 Time: 9:00 AM Glipizide (Glipizide) 5 MG TABLET 1 Tablet ORAL AT BEDTIME Comments: NOT GIVEN IN HOSPITAL Misoprostol (Cytotec) 200 MCG TABLET 1 Tablet ORAL TWICE DAILY Comments: Last Taken: 05/14/16 Time: 9:00 AM Diclofenac Sodium (Diclofenac Sodium) 75 MG TABLET.DR 1 Tablet ORAL TWICE DAILY Comments: NOT GIVEN IN HOSPITAL Hydroxyzine HCl (Hydroxyzine HCl) 10 MG TABLET 10 Milligram ORAL THREE TIMES DAILY Days = 28 Comments: Last Taken: 05/11/16 Time: 6:30 PM Budesonide/Formoterol Fumarate (Symbicort 160-4.5 Mcg Inhaler) 160 MCG-4.5 MCG/ ACTUATION HFA.AER.AD 2 Puff Inhale through mouth TWICE DAILY Qty = 10 Comments: NOT GIVEN IN HOSPITAL Hydrochlorothiazide (Hydrochlorothiazide) 12.5 MG CAPSULE 1 Capsule ORAL DAILY Qty = 30 Comments: Last Taken: 05/14/16 Time: 9:00 AM Start taking the following new medications: Azithromycin (Azithromycin) 250 MG TABLET 250 Milligram ORAL Three times a week Qty = 12 No Refills Instructions: Tues, Thnickie, Sat (3 times/week) Comments: Last Taken: 05/14/16 Time: 9:00 AM Prednisone (Prednisone) 20 MG TABLET 50 Milligram ORAL DAILY Days = 9 No Refills Instructions: 50mg 4/4 40mg 4/5-4/6 30mg 4/7-4/8 20mg 4/9-4/10 10mg 4/11-4/12 Comments: Last Taken: 05/14/16 Time: 9:00 AM Copies To: JCARLOS ZHOU,ROHINI; SPENCER ZHOU,EMANUEL Menezes; PAVEL ZHOU,NIKA Acosta
--- NOTE | 2016-05-14 11:59 | NUR ---
PT WAS AMBULATED AROUND THE UNIT @ 1150 WITH 4LO2NC HIS HOME O2 LEVEL. O2 SAT WAS 94-95%. PT DID HAVE EXERTIONAL SOB BY THE END OF THE WALK.
--- NOTE | 2016-05-14 12:58 | NUR ---
PHYSICAL THERAPY: Patient ambulating independently within room and was ambulated by nursing staff w/o use of assistive device around floor. Ambulatory stats obtained. Per RN, patient is independent and without any loss of balance or safety concerns. Per case management noted, patient is planning to d/c home self care later today. Patient does not require skilled PT services at this time; Physical therapy will not assess. Per RN, is aware and planning to cancel PT orders as appropriate.
--- NOTE | 2016-05-14 15:43 | Event Note ---
Event Note Event Note: Pt would like to have prednisone taper dose instead of 40mg/d x 5 days. Prescription was changed to 50mg 05/15, 40mg 05/16-05/17, 30mg 05/18-05/19, 20mg 05/20-05/21, 10mg 05/22-05/23. Renewal paper prescription for po mag 400mg bid was given. Elizabeth Sepulveda PGY 4 IM/OM
== END 2016-05-14 17:10 | DRG 190 ==
LOC: ENRESERVDT → ENRESERVTM → ERH 00:42 → ENPENDDIS 02:11 → ERHI 02:11 → 1NO 02:11
PROVIDERS: Emergency Medicine; Internal Medicine; Internal Medicine Endocrinology, Diabetes & Metabolism; Internal Medicine Hematology & Oncology; ADMIT Internal Medicine
DX: J44.1 Chronic obstructive pulmonary disease with (acute) exacerbation (principal); J96.22 Acute and chronic respiratory failure with hypercapnia; Z99.81 Dependence on supplemental oxygen; E11.9 Type 2 diabetes mellitus without complications; I10 Essential (primary) hypertension; E78.5 Hyperlipidemia, unspecified; J45.909 Unspecified asthma, uncomplicated; Z87.891 Personal history of nicotine dependence; F41.8 Other specified anxiety disorders; Z79.84 Long term (current) use of oral hypoglycemic drugs; R91.1 Solitary pulmonary nodule
CPT/HCPCS: 1NP; 36415; 82436; 87040; 87804; 87804-59; 93005; 93010; 96374; 96375; 99291; J0456; J1644; J1650; J2920; J2930; J3490